=== PATIENT | male | born 1970 | race Caucasian/White ===

== ENCOUNTER 2016-11-14 08:23 | Inpatient (IN) | payer OTHER ==
[2016-11-14 08:50] VITALS: BMI 41.0
--- NOTE | 2016-11-14 08:52 | HP ---
COWS - Scale Resting Pulse: 0= [place] 80 or Below Sweatin=Flushed/Facial Moisture Restless Observation: 3= Extraneous Movement Pupil Size: 2= Moderately Dilated Bone or Joint Aches: 2= Severe Diffuse Aches Runny Nose/ Eye Tearin= Runny Nose/Eyes GI Upset > 30mins: 3= Vomiting/Diarrhea Tremor Observation: 2= Slight Tremor Visible Yawning Observation: 2= >3x During Session Anxiety or Irritability: 2=Irritable/Anxious Goose Flesh Skin: 0=Smooth Skin COWS Score: 20 Admission ROS BHS - HPI Chief Complaint: i neeed help to stop using heroin,cocaine,xanax,marijuana,street methadone Allergies/Adverse Reactions: Allergies Allergy/AdvReac Type Severity Reaction Status Date / Time No Known Allergies Allergy Verified 11/14/16 08:45 History of Present Illness: this 45 years old male with heroin,cocaine,cannabis,marijuana dependence, withdrawal symptom,never been in detox before stated need help to stop using drugs nicotine dependence plan to go to rehab after detox denied psychiatric problem also using street methadone Exam Limitations: No Limitations - Ebola screening Have you traveled outside of the country in the last 21 days: No Have you had contact with anyone from an Ebola affected area: No - Review of Systems Constitutional: Diaphoresis, Loss of Appetite, Malaise, Night Sweats, Changes in sleep, Weakness EENT: reports: Tearing, Nose Congestion Respiratory: reports: No Symptoms reported Cardiac: reports: Palpitations GI: reports: Diarrhea, Nausea, Vomiting, Abdominal cramping : reports: No Symptoms Reported Musculoskeletal: reports: Back Pain, Joint Pain, Muscle Pain, Joint Stiffness Integumentary: reports: Dryness Neuro: reports: Headache, Tremors Endocrine: reports: No Symptoms Reported Hematology: reports: No Symptoms Reported Psychiatric: reports: No Sypmtoms Reported Other Systems: Reviewed and Negative Patient History - Patient Medical History Hx Anemia: No Hx Asthma: No Hx Chronic Obstructive Pulmonary Disease (COPD): No Hx Cancer: No Hx Cardiac Disorders: No Hx Congestive Heart Failure: No Hx Hypertension: No Hx Hypercholesterolemia: No Hx Pacemaker: No HX Cerebrovascular Accident: No Hx Seizures: No Hx Dementia: No Hx Diabetes: No Hx Gastrointestinal Disorders: No Hx Liver Disease: No Hx Genitourinary Disorders: No Hx Sexually Transmitted Disorders: No Hx Renal Disease (ESRD): No Hx Thyroid Disease: No Hx Human Immunodeficiency Virus (HIV): No (2016 negative) Hx Hepatitis C: No Hx Depression: No Hx Suicide Attempt: No Hx Bipolar Disorder: No Hx Schizophrenia: No Other Medical History: no suicidal,no homicidal - Patient Surgical History Past Surgical History: No - PPD History Previous Implant?: Yes Documented Results: Negative w/o proof Implanted On Prior [facility] Admission?: No PPD to be Administered?: Yes - Smoking Cessation Smoking history: Current every day smoker Have you smoked in the past 12 months: Yes Aproximately how many cigarettes per day: 20 Cigars Per Day: 0 Hx Chewing Tobacco Use: No Initiated information on smoking cessation: Yes 'Breaking Loose' booklet given: 11/14/16 - Substance & Tx. History Hx Alcohol Use: No Hx Substance Use: Yes Substance Use Type: Cocaine, Heroin, Marijuana, Tranquilizers Hx Substance Use Treatment: No - Substances Abused Heroin Route: Inhalation Frequency: Daily Amount used: 20-25 bags Age of first use: 23 Date of Last Use: 11/14/16 Cocaine Route: Inhalation Frequency: 1-3 times last 30 days Amount used: 1/2 gram Age of first use: 23 Date of Last Use: 11/10/16 Alprazolam (Xanax) Route: Oral Frequency: 1-2 times per week Amount used: 4mg Age of first use: 23 Date of Last Use: 11/10/16 Marijuana/Hashish Route: Smoking Frequency: Daily Amount used: $20 Age of first use: 17 Date of Last Use: 11/13/16 Non-Rx Methadone Route: Oral Frequency: 1-3 times last 30 days Amount used: 30mg Age of first use: 23 Date of Last Use: 11/10/16 Family Disease History - Family Disease History Family History: Denies Admission Physical Exam BHS - Vital Signs Vital Signs: Vital Signs Temperature 97.9 F 11/14/16 08:46 Pulse Rate 77 11/14/16 08:46 Respiratory Rate 16 11/14/16 08:46 Blood Pressure 140/94 11/14/16 08:46 O2 Sat by Pulse Oximetry (%) - Physical General Appearance: Yes: Moderate Distress, Tremorous, Irritable, Sweating, Anxious HEENTM: Yes: Hearing grossly Normal, AZRA, Nasal Congestion Respiratory: Yes: Lungs Clear, Normal Breath Sounds, No Respiratory Distress Neck: Yes: Within Normal Limits, Supple, Trachea in good position Breast: Yes: Within Normal Limits Cardiology: Yes: Regular Rhythm, Regular Rate, S1, S2 Abdominal: Yes: Within Normal Limits, Normal Bowel Sounds, Non Tender, Flat, Soft Genitourinary: Yes: Within Normal Limits Back: Yes: Within Normal Limits, Muscle Spasm Musculoskeletal: Yes: full range of Motion, Back pain, Joint Stiffness, Muscle Pain Neurological: Yes: publications sales representative II-XII NML intact, Fully Oriented, Alert, Motor Strength 5/5 Integumentary: Yes: Dry Lymphatic: Yes: Within Normal Limits - Diagnostic (1) Opioid dependence with withdrawal Current Visit: Yes Status: Acute (2) Cocaine dependence Current Visit: Yes Status: Acute (3) Cannabis dependence Current Visit: Yes Status: Acute (4) Insomnia Current Visit: Yes Status: Acute (5) Nicotine dependence Current Visit: Yes Status: Acute Cleared for Admission S - Detox or Rehab [facility] Level of Care: Medically Managed Detox Regimen/Protocol: Methadone
[2016-11-14] MEDS ORDERED: NICOTINE POLACRILEX 2 MG GUM BUC PRN (09:15)
[2016-11-14] MEDS ORDERED: MENTHOL/PHENOL 1 EACH UD MM PRN (09:15)
[2016-11-14] MEDS ORDERED: ACETAMINOPHEN 325 MG TABLET (FP) PO PRN (09:15)
[2016-11-14] MEDS ORDERED: guaiFENesin/D-METHORPHAN HB 10 ML UNIT-DOSE CUPS PO PRN (09:15)
[2016-11-14] MEDS ORDERED: MAG HYDROX/AL HYDROX/SIMETH 30 ML UNIT-DOSE CUP PO PRN (09:15)
[2016-11-14] MEDS ORDERED: MAGNESIUM CITRATE 300 ML BOTTLE PO PRN (09:15)
[2016-11-14] MEDS ORDERED: hydrOXYzine PAMOATE 50 MG CAPSULE (FP) PO PRN (09:15)
[2016-11-14] MEDS ORDERED: IBUPROFEN 400 MG TABLET (FP) PO PRN (09:15)
[2016-11-14] MEDS ORDERED: diphenhydrAMINE HCL 50 MG CAPSULE PO PRN (09:15)
[2016-11-14] MEDS ORDERED: MAGNESIUM HYDROX 2400MG/30ML ORAL SUSPENSION 30 ML CUP PO PRN (09:15)
[2016-11-14] MEDS ORDERED: LOPERAMIDE HCL 2 MG CAPSULE PO PRN (09:15)
[2016-11-14] MEDS ORDERED: P-EPHED 60MG/TRIPROLIDI 2.5MG TABLET PO PRN (09:15)
[2016-11-14] MEDS ORDERED: CYCLOBENZAPRINE HCL 10 MG TABLET (FP) PO PRN (09:19)
[2016-11-14] MEDS ORDERED: METHADONE HCL 10 MG TABLET (FOR DETOX USE ONLY) PO ONE ×2 (10:14→23:00)
[2016-11-14] MEDS: diazePAM 5 MG TABLET PO PRN ×2 (11:41→22:17)
[2016-11-14] MEDS: cloNIDine HCL 0.1 MG TABLET PO SCH ×2 (11:41→22:17)
[2016-11-14] MEDS: PRENATAL VITAMINS W/ FOLIC ACID TABLET (FP) PO SCH (11:42)
[2016-11-14] MEDS: NICOTINE 21 MG/24 HOURS TOPICAL PATCH TD SCH (11:43)
--- NOTE | 2016-11-14 17:16 | EKG ---
Test Reason : Blood Pressure : / mmHG Vent. Rate : 065 BPM Atrial Rate : 065 BPM P-R Int : 140 ms QRS Dur : 088 ms QT Int : 404 ms P-R-T Axes : 015 068 033 degrees QTc Int : 420 ms NORMAL SINUS RHYTHM EARLY REPOLARIZATION NORMAL ECG NO PREVIOUS ECGS AVAILABLE Confirmed by MILDRED WALKER MD ([id number]) on 11/14/2016 5:16:16 PM Referred By: Confirmed By:MILDRED WALKER MD
[2016-11-14] MEDS ORDERED: THIAMINE HCL 100 MG TABLET (FP) PO SCH (22:00)
[2016-11-14 23:17] LABS: HIV 1 & 2 AB NEGATIVE; HIV 1 AGp24 NEGATIVE
[2016-11-15 05:43] LABS: URINE APPEARANCE CLEAR; URINE BILIRUBIN NEGATIVE (NEGATIVE); URINE BLOOD NEGATIVE (NEGATIVE); URINE COLOR YELLOW; URINE GLUCOSE (UA) NEGATIVE (NEGATIVE); URINE KETONE TRACE (NEGATIVE); URINE LEUK ESTERASE NEGATIVE (NEGATIVE); URINE NITRITE NEGATIVE (NEGATIVE); URINE PROTEIN NEGATIVE (NEGATIVE); URINE UROBILINOGEN NEGATIVE E.U./dl (0.2-1.0)
[2016-11-15] MEDS ORDERED: METHADONE HCL 10 MG TABLET (FOR DETOX USE ONLY) PO ONE (10:00)
[2016-11-15] MEDS ORDERED: DOCUSATE SODIUM 100 MG CAPSULE (FP) PO SCH (10:00)
[2016-11-15] MEDS: PRENATAL VITAMINS W/ FOLIC ACID TABLET (FP) PO SCH (10:04)
[2016-11-15] MEDS: diazePAM 5 MG TABLET PO PRN (10:04)
[2016-11-15] MEDS: NICOTINE 21 MG/24 HOURS TOPICAL PATCH TD SCH (10:05)
[2016-11-15] MEDS: cloNIDine HCL 0.1 MG TABLET PO SCH (10:05)
--- NOTE | 2016-11-15 11:23 | PN ---
BHS COWS - Scale Resting Pulse: 0= [place] 80 or Below Sweatin=Flushed/Facial Moisture Restless Observation: 0= Sits Still Pupil Size: 0= Normal to Room Light Bone or Joint Aches: 1= Mild Discomfort Runny Nose/ Eye Tearin= Runny Nose/Eyes GI Upset > 30mins: 1= Stomach Cramp Tremor Observation of Outstretched Hands: 2= Slight Tremor Visible Yawning Observation: 1= 1-2x During Session Anxiety or Irritability: 2=Irritable/Anxious Goose Flesh Skin: 3=Piloerection COWS Score: 14 BHS Progress Note (SOAP) Subjective: Stomach Cramping, Constipation, Sweating, Tremors, Interrupted sleep. Objective: PT. SA & O X 3, OBSERVED AMBULATING ON UNIT. NO ACUTE DISTRESS. PT. DENIES CHEST PAIN. 11/15/16 11:20 Vital Signs Temperature 97.8 F 11/15/16 09:09 Pulse Rate 68 11/15/16 09:09 Respiratory Rate 18 11/15/16 09:09 Blood Pressure 122/72 11/15/16 09:09 O2 Sat by Pulse Oximetry (%) Laboratory Tests 11/14/16 11/14/16 10:00 16:53 Urine Color Yellow Urine Appearance Clear Urine pH 5.0 Urine Protein Negative Urine Glucose (UA) Negative Urine Ketones Trace H Urine Blood Negative Urine Nitrite Negative Urine Bilirubin Negative Urine Urobilinogen Negative Ur Leukocyte Esterase Negative HIV 1&2 Antibody Screen Negative HIV P24 Antigen Negative UA RESULTS NOTED. OTHER ADMISSION LAB VALUES PENDING. Assessment: 11/15/16 11:21 WITHDRAWAL SYMPTOMS. Plan: CONTINUE DETOX. COLACE, 100 MG BID FOR CONSTIPATION.
[2016-11-15 13:30] VITALS: BP 122/82; PULSE 65; TEMP 97.5
[2016-11-15 14:43] LABS: MCH 30.8 pg (25.7-33.7); MCHC 33.9 g/dl (32.0-35.9); MEAN CELL VOLUME 90.9 fl (80-96); MEAN PLT VOLUME 9.4 fl (7.5-11.1); PLATELET COUNT 174 K/MM3 (134-434); RDW 13.4 % (11.9-15.9); WHITE BLOOD COUNT 7.5 K/mm3 (4.0-10.0)
[2016-11-15 14:58] LABS: ANION GAP 7 (8-16); BILIRUBIN,TOTAL 0.4 mg/dL (0.2-1.0); CALCIUM 8.3 mg/dL (8.5-10.1); CO2 29 mmol/L (21-32); CREATININE 0.9 mg/dL (0.7-1.3); GLUCOSE,RANDOM 113 mg/dL (74-106); SGOT/AST 15 U/L (15-37); SGPT/ALT 28 U/L (12-78); TOT PROT 5.7 g/dl (6.4-8.2)
[2016-11-15 14:59] LABS: ALK PHOS 63 U/L (45-117)
--- NOTE | 2016-11-15 16:06 | PN ---
[facility] Progress Note Note: Earlier in afternoon at approx. 2 PM, received report from Karen Granados RN that patient is contemplating leaving AMA because he does not like having to attend daily Unit Group meetings and daily meetings with his Coal Washer Tender on Unit. Along with Coal Washer Tender Hans Escudero and Ms. Karen Granados RN, met with patient to discuss his concerns about completing Detox and encouraged him to try to remain on unit to complete Detox regimen. Patient receptive to discussion and responded that he will agree to try to stay to complete Detox. Marija Goins NP
--- NOTE | 2016-11-15 16:09 | DS ---
[facility] Detox Discharge Summary Admission Date: 11/14/16 Discharge Date: 11/15/16 - History Present History: Cannabis Dependence, Cocaine Dependence, Opioid Dependence Pertinent Past History: Insomnia. - Physical Exam Results Vital Signs: Vital Signs Temperature 97.5 F L 11/15/16 13:30 Pulse Rate 65 11/15/16 13:30 Respiratory Rate 18 11/15/16 13:30 Blood Pressure 122/82 11/15/16 13:30 O2 Sat by Pulse Oximetry (%) Pertinent Admission Physical Exam Findings: WITHDRAWAL SYMPTOMS. Laboratory Tests 11/14/16 11/14/16 11/15/16 10:00 16:53 10:45 WBC 7.5 RBC 4.69 Hgb 14.5 Hct 42.6 MCV 90.9 MCH 30.8 MCHC 33.9 RDW 13.4 Plt Count 174 MPV 9.4 Sodium Potassium Chloride Carbon Dioxide Anion Gap BUN Creatinine Creat Clearance w eGFR Random Glucose Calcium Total Bilirubin AST ALT Alkaline Phosphatase Total Protein Albumin Urine Color Yellow Urine Appearance Clear Urine pH 5.0 Ur Specific [place] 1.025 Urine Protein Negative Urine Glucose (UA) Negative Urine Ketones Trace H Urine Blood Negative Urine Nitrite Negative Urine Bilirubin Negative Urine Urobilinogen Negative Ur Leukocyte Esterase Negative RPR Titer HIV 1&2 Antibody Screen Negative HIV P24 Antigen Negative 11/15/16 11/15/16 10:45 10:45 WBC RBC Hgb Hct MCV MCH MCHC RDW Plt Count MPV Sodium 139 Potassium 4.0 Chloride 103 Carbon Dioxide 29 Anion Gap 7 L BUN 13 Creatinine 0.9 Creat Clearance w eGFR > 60 Random Glucose 113 H Calcium 8.3 L Total Bilirubin 0.4 AST 15 ALT 28 Alkaline Phosphatase 63 Total Protein 5.7 L Albumin 3.0 L Urine Color Urine Appearance Urine pH Ur Specific [place] Urine Protein Urine Glucose (UA) Urine Ketones Urine Blood Urine Nitrite Urine Bilirubin Urine Urobilinogen Ur Leukocyte Esterase RPR Titer Nonreactive HIV 1&2 Antibody Screen HIV P24 Antigen LABS NOTED. - Treatment Hospital Course: Detoxed Safely - Medication Discharge Medications: Ambulatory Orders NK [No Known Home Medication] 11/14/16 - Diagnosis (1) Cannabis dependence Current Visit: Yes Status: Acute (2) Cocaine dependence Current Visit: Yes Status: Acute Qualifiers: Substance use status: uncomplicated Qualified Code(s): F14.20 - Cocaine dependence, uncomplicated (3) Insomnia Current Visit: Yes Status: Acute Qualifiers: Insomnia type: unspecified Qualified Code(s): G47.00 - Insomnia, unspecified (4) Nicotine dependence Current Visit: Yes Status: Chronic Qualifiers: Nicotine product type: cigarettes Substance use status: uncomplicated Qualified Code(s): F17.210 - Nicotine dependence, cigarettes, uncomplicated (5) Opioid dependence with withdrawal Current Visit: Yes Status: Acute - AMA Did Patient Leave Against Medical Advice: Yes (PATIENT DID NOT WISH TO STAY TO COMPLETE DETOX REGIMEN.)
[2016-11-16] MEDS ORDERED: METHADONE HCL 5 MG TABLET (FOR DETOX USE ONLY) PO ONE (10:00)
[2016-11-17] MEDS ORDERED: METHADONE HCL 5 MG TABLET (FOR DETOX USE ONLY) PO ONE (10:00)
[2016-11-18] MEDS ORDERED: METHADONE HCL 10 MG TABLET (FOR DETOX USE ONLY) PO ONE (10:00)
[2016-11-19] MEDS ORDERED: METHADONE HCL 5 MG TABLET (FOR DETOX USE ONLY) PO ONE (06:00)
== END 2016-11-15 15:05 | disposition left against medical advice (07) | DRG 770 ==
LOC: YASAS 08:23 → Y3N 10:11
PROVIDERS: ADMIT Internal Medicine; ATTEND Internal Medicine
PROC: HZ2ZZZZ Detoxification Services for Substance Abuse Treatment (ICD-10-PCS; principal; 2016-11-14)
DX: F11.23 Opioid dependence with withdrawal (principal); F14.20 Cocaine dependence, uncomplicated; F12.20 Cannabis dependence, uncomplicated; F17.210 Nicotine dependence, cigarettes, uncomplicated; G47.00 Insomnia, unspecified
CPT/HCPCS: 36415; 80053; 81003; 85027; 86593; 87389; 93005; 93010

== ENCOUNTER 2018-03-03 12:58 | Inpatient (IN) | payer OTHER ==
[2018-03-03 13:41] VITALS: BMI 39.4
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
[2018-03-03] MEDS ORDERED: guaiFENesin/D-METHORPHAN HB 10 ML UNIT-DOSE CUPS PO PRN (14:42)
[2018-03-03] MEDS ORDERED: LOPERAMIDE HCL 2 MG CAPSULE PO PRN (14:42)
[2018-03-03] MEDS ORDERED: MAG HYDROX/AL HYDROX/SIMETH 30 ML UNIT-DOSE CUP PO PRN (14:42)
[2018-03-03] MEDS ORDERED: METHADONE HCL 10 MG TABLET (FOR DETOX USE ONLY) PO ONE ×2 (14:42→23:00)
[2018-03-03] MEDS ORDERED: P-EPHED 60MG/TRIPROLIDI 2.5MG TABLET PO PRN (14:42)
[2018-03-03] MEDS ORDERED: ACETAMINOPHEN 325 MG TABLET (FP) PO PRN (14:42)
[2018-03-03] MEDS ORDERED: MAGNESIUM CITRATE 300 ML BOTTLE PO PRN (14:42)
[2018-03-03] MEDS ORDERED: MENTHOL/PHENOL 1 EACH UD MM PRN (14:42)
[2018-03-03] MEDS ORDERED: MAGNESIUM HYDROX 2400MG/30ML ORAL SUSPENSION 30 ML CUP PO PRN (14:42)
[2018-03-03] MEDS ORDERED: IBUPROFEN 400 MG TABLET (FP) PO PRN (14:42)
[2018-03-03] MEDS ORDERED: NICOTINE POLACRILEX 2 MG GUM BC PRN (14:42)
[2018-03-03] MEDS ORDERED: CYCLOBENZAPRINE HCL 10 MG TABLET (FP) PO PRN (14:45)
[2018-03-03] MEDS: NICOTINE 21 MG/24 HOURS TOPICAL PATCH TD SCH (15:36)
[2018-03-03 17:05] LABS: URINE APPEARANCE CLEAR; URINE BILIRUBIN NEGATIVE (<2.0 mg/dL); URINE COLOR YELLOW; URINE GLUCOSE (UA) NEGATIVE (NEGATIVE); URINE KETONE NEGATIVE (NEGATIVE); URINE LEUK ESTERASE NEGATIVE (NEGATIVE); URINE NITRITE NEGATIVE (NEGATIVE); URINE PROTEIN NEGATIVE (NEGATIVE); URINE UROBILINOGEN NEGATIVE mg/dL (0.2-1.0)
[2018-03-03] MEDS ORDERED: MELATONIN 5 MG TABLETS PO PRN (22:00)
[2018-03-03] MEDS: THIAMINE HCL 100 MG TABLET (FP) PO SCH (22:30)
[2018-03-03] MEDS: cloNIDine HCL 0.1 MG TABLET PO SCH (22:30)
[2018-03-04] MEDS: diazePAM 5 MG TABLET PO PRN ×2 (02:55→10:15)
--- NOTE | 2018-03-04 09:49 | EKG ---
Test Reason : Blood Pressure : / mmHG Vent. Rate : 062 BPM Atrial Rate : 062 BPM P-R Int : 134 ms QRS Dur : 088 ms QT Int : 390 ms P-R-T Axes : 021 076 062 degrees QTc Int : 395 ms NORMAL SINUS RHYTHM EARLY REPOLARIZATION NORMAL ECG WHEN COMPARED WITH ECG OF 14-NOV-2016 10:58, NO SIGNIFICANT CHANGE WAS FOUND Confirmed by OSORIO OSMAN MD ([id number]) on 03/04/2018 9:49:46 AM Referred By: ARIANNA THOMAS Confirmed By:SOORIO OSMAN MD
[2018-03-04] MEDS ORDERED: METHADONE HCL 10 MG TABLET (FOR DETOX USE ONLY) PO ONE (10:00)
[2018-03-04] MEDS: PRENATAL VITAMINS W/ FOLIC ACID TABLET (FP) PO SCH (10:15)
[2018-03-04] MEDS: cloNIDine HCL 0.1 MG TABLET PO SCH ×2 (10:15→22:20)
[2018-03-04] MEDS: NICOTINE 21 MG/24 HOURS TOPICAL PATCH TD SCH (10:16)
[2018-03-04 10:25] LABS: HEMATOCRIT 45.5 % (35.4-49); HEMOGLOBIN 14.6 GM/dL (11.7-16.9); MCH 29.1 pg (25.7-33.7); MEAN CELL VOLUME 90.8 fl (80-96); MEAN PLT VOLUME 9.6 fl (7.5-11.1); PLATELET COUNT 189 K/MM3 (134-434); RBC 5.01 M/mm3 (4.00-5.60); RDW 13.8 % (11.9-15.9)
[2018-03-04 10:46] LABS: ALBUMIN 3.3 g/dl (3.4-5.0); ALK PHOS 61 U/L (45-117); ANION GAP 9 MMOL/L (8-16); BILIRUBIN,TOTAL 0.3 mg/dL (0.2-1); BLOOD UREA NITROGEN 20 mg/dL (7-18); CALCIUM 8.4 mg/dL (8.5-10.1); CHLORIDE 105 mmol/L (98-107); CO2 26 mmol/L (21-32); CREATININE 0.8 mg/dL (0.55-1.3); GLUCOSE,RANDOM 94 mg/dL (74-106); POTASSIUM 4.5 mmol/L (3.5-5.1); SGOT/AST 11 U/L (15-37); SGPT/ALT 20 U/L (13-61); SODIUM 141 mmol/L (136-145); TOT PROT 6.1 g/dl (6.4-8.2)
--- NOTE | 2018-03-04 14:00 | PN ---
BHS COWS - Scale Resting Pulse: 0= [place] 80 or Below Sweatin= Chills/Flushing Restless Observation: 3= Extraneous Movement Pupil Size: 0= Normal to Room Light Bone or Joint Aches: 2= Severe Diffuse Aches Runny Nose/ Eye Tearin= Runny Nose/Eyes GI Upset > 30mins: 2= Nausea/Diarrhea Tremor Observation of Outstretched Hands: 2= Slight Tremor Visible Yawning Observation: 1= 1-2x During Session Anxiety or Irritability: 2=Irritable/Anxious Goose Flesh Skin: 0=Smooth Skin COWS Score: 15 BHS Progress Note (SOAP) Subjective: Sweating, interrupted sleep Objective: 03/04/18 13:58 Last Vital Signs Temp Pulse Resp BP Pulse Ox 96 F L 70 20 120/73 03/04/18 13:33 03/04/18 13:33 03/04/18 13:33 03/04/18 13:33 Laboratory Tests 03/03/18 03/04/18 03/04/18 16:33 07:00 07:00 WBC 8.0 RBC 5.01 Hgb 14.6 Hct 45.5 MCV 90.8 MCH 29.1 MCHC 32.0 RDW 13.8 Plt Count 189 MPV 9.6 Sodium Potassium Chloride Carbon Dioxide Anion Gap BUN Creatinine Creat Clearance w eGFR Random Glucose Calcium Total Bilirubin AST ALT Alkaline Phosphatase Total Protein Albumin Urine Color Yellow Urine Appearance Clear Urine pH 5.0 Ur Specific [place] 1.023 Urine Protein Negative Urine Glucose (UA) Negative Urine Ketones Negative Urine Blood Negative Urine Nitrite Negative Urine Bilirubin Negative Urine Urobilinogen Negative Ur Leukocyte Esterase Negative RPR Titer HIV 1&2 Antibody Screen Negative HIV P24 Antigen Negative 03/04/18 03/04/18 07:00 07:00 WBC RBC Hgb Hct MCV MCH MCHC RDW Plt Count MPV Sodium 141 Potassium 4.5 Chloride 105 Carbon Dioxide 26 Anion Gap 9 BUN 20 H Creatinine 0.8 Creat Clearance w eGFR > 60 Random Glucose 94 Calcium 8.4 L Total Bilirubin 0.3 AST 11 L ALT 20 Alkaline Phosphatase 61 Total Protein 6.1 L Albumin 3.3 L Urine Color Urine Appearance Urine pH Ur Specific [place] Urine Protein Urine Glucose (UA) Urine Ketones Urine Blood Urine Nitrite Urine Bilirubin Urine Urobilinogen Ur Leukocyte Esterase RPR Titer Nonreactive HIV 1&2 Antibody Screen HIV P24 Antigen Labs reviewed: bun 20 Assessment: 03/04/18 14:00 Withdrawal symptoms Noted with azotemia Plan: Continue detox Azotemia: encouraged PO water intake
[2018-03-04] MEDS: THIAMINE HCL 100 MG TABLET (FP) PO SCH (22:21)
[2018-03-05] MEDS ORDERED: METHADONE HCL 5 MG TABLET (FOR DETOX USE ONLY) PO ONE (10:00)
[2018-03-05] MEDS: PRENATAL VITAMINS W/ FOLIC ACID TABLET (FP) PO SCH (10:13)
[2018-03-05] MEDS: cloNIDine HCL 0.1 MG TABLET PO SCH ×2 (10:13→22:17)
[2018-03-05] MEDS: NICOTINE 21 MG/24 HOURS TOPICAL PATCH TD SCH (10:14)
--- NOTE | 2018-03-05 10:57 | PN ---
BHS COWS - Scale Resting Pulse: 0= [place] 80 or Below Sweatin= Chills/Flushing Restless Observation: 1= Difficult to Sit Still Pupil Size: 0= Normal to Room Light Bone or Joint Aches: 2= Severe Diffuse Aches Runny Nose/ Eye Tearin= Runny Nose/Eyes GI Upset > 30mins: 2= Nausea/Diarrhea Tremor Observation of Outstretched Hands: 2= Slight Tremor Visible Yawning Observation: 0= None Anxiety or Irritability: 2=Irritable/Anxious Goose Flesh Skin: 0=Smooth Skin COWS Score: 12 BHS Progress Note (SOAP) Subjective: Sweating, interrupted sleep, nausea Objective: 03/05/18 10:56 Last Vital Signs Temp Pulse Resp BP Pulse Ox 96.4 F L 66 18 117/80 03/05/18 09:05 03/05/18 09:05 03/05/18 09:05 03/05/18 09:05 Laboratory Tests 03/03/18 03/04/18 03/04/18 16:33 07:00 07:00 WBC 8.0 RBC 5.01 Hgb 14.6 Hct 45.5 MCV 90.8 MCH 29.1 MCHC 32.0 RDW 13.8 Plt Count 189 MPV 9.6 Sodium Potassium Chloride Carbon Dioxide Anion Gap BUN Creatinine Creat Clearance w eGFR Random Glucose Calcium Total Bilirubin AST ALT Alkaline Phosphatase Total Protein Albumin Urine Color Yellow Urine Appearance Clear Urine pH 5.0 Ur Specific [place] 1.023 Urine Protein Negative Urine Glucose (UA) Negative Urine Ketones Negative Urine Blood Negative Urine Nitrite Negative Urine Bilirubin Negative Urine Urobilinogen Negative Ur Leukocyte Esterase Negative RPR Titer HIV 1&2 Antibody Screen Negative HIV P24 Antigen Negative 03/04/18 03/04/18 07:00 07:00 WBC RBC Hgb Hct MCV MCH MCHC RDW Plt Count MPV Sodium 141 Potassium 4.5 Chloride 105 Carbon Dioxide 26 Anion Gap 9 BUN 20 H Creatinine 0.8 Creat Clearance w eGFR > 60 Random Glucose 94 Calcium 8.4 L Total Bilirubin 0.3 AST 11 L ALT 20 Alkaline Phosphatase 61 Total Protein 6.1 L Albumin 3.3 L Urine Color Urine Appearance Urine pH Ur Specific [place] Urine Protein Urine Glucose (UA) Urine Ketones Urine Blood Urine Nitrite Urine Bilirubin Urine Urobilinogen Ur Leukocyte Esterase RPR Titer Nonreactive HIV 1&2 Antibody Screen HIV P24 Antigen Labs reviewed Assessment: 03/05/18 10:57 Withdrawal symptoms Plan: Continue detox Encouraged PO water intake
[2018-03-05] MEDS: diazePAM 5 MG TABLET PO PRN (20:09)
[2018-03-05] MEDS: THIAMINE HCL 100 MG TABLET (FP) PO SCH (22:17)
[2018-03-06] MEDS ORDERED: METHADONE HCL 5 MG TABLET (FOR DETOX USE ONLY) PO ONE (10:00)
[2018-03-06] MEDS: NICOTINE 21 MG/24 HOURS TOPICAL PATCH TD SCH (11:29)
[2018-03-06] MEDS: PRENATAL VITAMINS W/ FOLIC ACID TABLET (FP) PO SCH (11:29)
[2018-03-06] MEDS: cloNIDine HCL 0.1 MG TABLET PO SCH (11:29)
[2018-03-06 13:38] VITALS: BP 132/85; PULSE 68; TEMP 98.9
--- NOTE | 2018-03-06 13:58 | PN ---
BHS Progress Note (SOAP) Subjective: Sweating, anxious Objective: 03/06/18 13:57 Last Vital Signs Temp Pulse Resp BP Pulse Ox 98.9 F 68 18 132/85 03/06/18 13:37 03/06/18 13:37 03/06/18 13:37 03/06/18 13:37 Laboratory Tests 03/03/18 03/04/18 03/04/18 16:33 07:00 07:00 WBC 8.0 RBC 5.01 Hgb 14.6 Hct 45.5 MCV 90.8 MCH 29.1 MCHC 32.0 RDW 13.8 Plt Count 189 MPV 9.6 Sodium Potassium Chloride Carbon Dioxide Anion Gap BUN Creatinine Creat Clearance w eGFR Random Glucose Calcium Total Bilirubin AST ALT Alkaline Phosphatase Total Protein Albumin Urine Color Yellow Urine Appearance Clear Urine pH 5.0 Ur Specific [place] 1.023 Urine Protein Negative Urine Glucose (UA) Negative Urine Ketones Negative Urine Blood Negative Urine Nitrite Negative Urine Bilirubin Negative Urine Urobilinogen Negative Ur Leukocyte Esterase Negative RPR Titer HIV 1&2 Antibody Screen Negative HIV P24 Antigen Negative 03/04/18 03/04/18 07:00 07:00 WBC RBC Hgb Hct MCV MCH MCHC RDW Plt Count MPV Sodium 141 Potassium 4.5 Chloride 105 Carbon Dioxide 26 Anion Gap 9 BUN 20 H Creatinine 0.8 Creat Clearance w eGFR > 60 Random Glucose 94 Calcium 8.4 L Total Bilirubin 0.3 AST 11 L ALT 20 Alkaline Phosphatase 61 Total Protein 6.1 L Albumin 3.3 L Urine Color Urine Appearance Urine pH Ur Specific [place] Urine Protein Urine Glucose (UA) Urine Ketones Urine Blood Urine Nitrite Urine Bilirubin Urine Urobilinogen Ur Leukocyte Esterase RPR Titer Nonreactive HIV 1&2 Antibody Screen HIV P24 Antigen Labs reviewed Assessment: 03/06/18 13:57 Withdrawal symptoms Plan: Continue detox Encouraged PO water intake
--- NOTE | 2018-03-06 14:10 | DS ---
[facility] Detox Discharge Summary Admission Date: 03/03/18 Discharge Date: 03/06/18 - History Present History: Cannabis Dependence, Opioid Dependence Additional Comments: Patient is A/A/Ox3, in nad, ambulatory. Patient stated he wants to leave because he wants to smoke cigarettes. [employer] notified patient that his discharge can be adjusted for him to leave tomorrow instead of leaving AMA today and encouraged NRT but patient refused. Patient instructed to call 911 if feeling sick or any withdrawal symptoms and to see his PCP within 3 days. Pertinent Past History: Nicotine dependence Opioid dependence Cannabis dependence - Physical Exam Results Vital Signs: Vital Signs Temperature 98.9 F 03/06/18 13:37 Pulse Rate 68 03/06/18 13:37 Respiratory Rate 18 03/06/18 13:37 Blood Pressure 132/85 03/06/18 13:37 O2 Sat by Pulse Oximetry (%) Pertinent Admission Physical Exam Findings: Withdrawal symptoms Laboratory Tests 03/03/18 03/04/18 03/04/18 16:33 07:00 07:00 WBC 8.0 RBC 5.01 Hgb 14.6 Hct 45.5 MCV 90.8 MCH 29.1 MCHC 32.0 RDW 13.8 Plt Count 189 MPV 9.6 Sodium Potassium Chloride Carbon Dioxide Anion Gap BUN Creatinine Creat Clearance w eGFR Random Glucose Calcium Total Bilirubin AST ALT Alkaline Phosphatase Total Protein Albumin Urine Color Yellow Urine Appearance Clear Urine pH 5.0 Ur Specific Rufe 1.023 Urine Protein Negative Urine Glucose (UA) Negative Urine Ketones Negative Urine Blood Negative Urine Nitrite Negative Urine Bilirubin Negative Urine Urobilinogen Negative Ur Leukocyte Esterase Negative RPR Titer HIV 1&2 Antibody Screen Negative HIV P24 Antigen Negative 03/04/18 03/04/18 07:00 07:00 WBC RBC Hgb Hct MCV MCH MCHC RDW Plt Count MPV Sodium 141 Potassium 4.5 Chloride 105 Carbon Dioxide 26 Anion Gap 9 BUN 20 H Creatinine 0.8 Creat Clearance w eGFR > 60 Random Glucose 94 Calcium 8.4 L Total Bilirubin 0.3 AST 11 L ALT 20 Alkaline Phosphatase 61 Total Protein 6.1 L Albumin 3.3 L Urine Color Urine Appearance Urine pH Ur Specific Rufe Urine Protein Urine Glucose (UA) Urine Ketones Urine Blood Urine Nitrite Urine Bilirubin Urine Urobilinogen Ur Leukocyte Esterase RPR Titer Nonreactive HIV 1&2 Antibody Screen HIV P24 Antigen Labs reviewed - Medication Discharge Medications: Ambulatory Orders NK [No Known Home Medication] 11/14/16 - Diagnosis (1) Azotemia Current Visit: Yes Status: Acute (2) Cannabis dependence Current Visit: Yes Status: Chronic (3) Insomnia Current Visit: Yes Status: Acute Qualifiers: Insomnia type: unspecified Qualified Code(s): G47.00 - Insomnia, unspecified (4) Opioid dependence with withdrawal Current Visit: Yes Status: Acute (5) Nicotine dependence Current Visit: Yes Status: Chronic Qualifiers: Nicotine product type: cigarettes Substance use status: uncomplicated Qualified Code(s): F17.210 - Nicotine dependence, cigarettes, uncomplicated - AMA Did Patient Leave Against Medical Advice: Yes (Instructed to call 911 if withdrawal symptoms or feeling sick)
[2018-03-07] MEDS ORDERED: METHADONE HCL 10 MG TABLET (FOR DETOX USE ONLY) PO ONE (10:00)
[2018-03-08] MEDS ORDERED: METHADONE HCL 5 MG TABLET (FOR DETOX USE ONLY) PO ONE (06:00)
== END 2018-03-06 14:19 | disposition left against medical advice (07) | DRG 770 ==
LOC: YASAS 12:58 → Y3N 14:47
PROC: HZ2ZZZZ Detoxification Services for Substance Abuse Treatment (ICD-10-PCS; principal; 2018-03-03)
DX: F11.23 Opioid dependence with withdrawal (principal); F12.20 Cannabis dependence, uncomplicated; F17.210 Nicotine dependence, cigarettes, uncomplicated; G47.00 Insomnia, unspecified; R79.89 Other specified abnormal findings of blood chemistry; R00.0 Tachycardia, unspecified
CPT/HCPCS: 36415; 80053; 81003; 85027; 86593; 87389; 93005; 93010; J0735

== ENCOUNTER 2018-04-17 08:58 | Inpatient (IN) | payer OTHER ==
[2018-04-17 12:28] VITALS: BMI 41.0
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
[2018-04-17] MEDS ORDERED: chlordiazePOXIDE HCL 25 MG CAPSULE PO PRN (13:12)
[2018-04-17] MEDS ORDERED: CYCLOBENZAPRINE HCL 10 MG TABLET (FP) PO PRN (13:13)
[2018-04-17] MEDS ORDERED: METHADONE HCL 10 MG TABLET (FOR DETOX USE ONLY) PO ONE ×2 (14:15→23:00)
[2018-04-17] MEDS: cloNIDine HCL 0.1 MG TABLET PO SCH ×2 (14:52→22:32)
[2018-04-17] MEDS: chlordiazePOXIDE HCL 25 MG CAPSULE PO SCH ×2 (17:16→22:32)
[2018-04-18] MEDS: chlordiazePOXIDE HCL 25 MG CAPSULE PO SCH ×4 (06:00→22:27)
--- NOTE | 2018-04-18 09:49 | PN ---
[facility] CIWA - CIWA Score Nausea/Vomitin-Mild Nausea/No Vomiting Muscle Tremors: 3 Anxiety: 3 Agitation: 2 Paroxysmal Sweats: 1-Minimal Palms Moist Orientation: 1-Uncertain about Date Tacttile Disturbances: 0-None Auditory Disturbances: 0-None Visual Disturbances: 0-None Headache: 1-Very Mild CIWA-Ar Total Score: 12 S COWS - Scale Resting Pulse: 0= ME 80 or Below Sweatin= Chills/Flushing Restless Observation: 0= Sits Still Pupil Size: 0= Normal to Room Light Bone or Joint Aches: 2= Severe Diffuse Aches Runny Nose/ Eye Tearin= Nasal Congestion GI Upset > 30mins: 2= Nausea/Diarrhea Tremor Observation of Outstretched Hands: 1= Tremor [place], Not Seen Yawning Observation: 2= >3x During Session Anxiety or Irritability: 1=Feels Anxious/Irritable Goose Flesh Skin: 0=Smooth Skin COWS Score: 10 [facility] Progress Note (SOAP) Subjective: body aches muscle cramp tremor sweat trouble sleep at night Objective: 04/18/18 09:52 Vital Signs Temperature 97.0 F L 04/18/18 06:53 Pulse Rate 53 L 04/18/18 06:53 Respiratory Rate 18 04/18/18 06:53 Blood Pressure 110/72 04/18/18 06:53 O2 Sat by Pulse Oximetry (%) lab pending 04/18/18 09:53 Assessment: 04/18/18 09:54 withdrawal sx Plan: continue detox
[2018-04-18] MEDS ORDERED: METHADONE HCL 10 MG TABLET (FOR DETOX USE ONLY) PO SCH (10:00)
[2018-04-18 10:41] LABS: HEMATOCRIT 42.1 % (35.4-49); HEMOGLOBIN 13.9 GM/dL (11.7-16.9); MCH 29.7 pg (25.7-33.7); MCHC 33.1 g/dl (32.0-35.9); MEAN CELL VOLUME 89.7 fl (80-96); MEAN PLT VOLUME 9.9 fl (7.5-11.1); PLATELET COUNT 232 K/MM3 (134-434); RBC 4.69 M/mm3 (4.00-5.60); RDW 14.3 % (11.9-15.9); WHITE BLOOD COUNT 7.6 K/mm3 (4.0-10.0)
[2018-04-18] MEDS: cloNIDine HCL 0.1 MG TABLET PO SCH ×2 (11:02→22:27)
[2018-04-18 11:24] LABS: ALBUMIN 4.1 g/dl (3.4-5.0); ALK PHOS 63 U/L (45-117); ANION GAP 10 MMOL/L (8-16); BILIRUBIN,TOTAL 0.6 mg/dL (0.2-1); BLOOD UREA NITROGEN 17 mg/dL (7-18); CHLORIDE 102 mmol/L (98-107); CO2 25 mmol/L (21-32); GLUCOSE,RANDOM 88 mg/dL (74-106); POTASSIUM 4.1 mmol/L (3.5-5.1); SGOT/AST 21 U/L (15-37); SGPT/ALT 30 U/L (13-61); SODIUM 138 mmol/L (136-145); TOT PROT 7.2 g/dl (6.4-8.2)
[2018-04-19] MEDS: chlordiazePOXIDE HCL 25 MG CAPSULE PO SCH ×2 (06:05→10:49)
[2018-04-19] MEDS ORDERED: METHADONE HCL 5 MG TABLET (FOR DETOX USE ONLY) PO SCH (10:00)
[2018-04-19] MEDS: cloNIDine HCL 0.1 MG TABLET PO SCH (10:49)
[2018-04-19 13:19] VITALS: BP 130/84; PULSE 78; TEMP 98.8
--- NOTE | 2018-04-19 15:51 | PN ---
S CIWA - CIWA Score Nausea/Vomitin-No Nausea/No Vomiting Muscle Tremors: 2 Anxiety: 2 Agitation: 2 Paroxysmal Sweats: 2 Orientation: 0-Oriented Tacttile Disturbances: 0-None Auditory Disturbances: 0-None Visual Disturbances: 0-None Headache: 0-None Present CIWA-Ar Total Score: 8 [facility] COWS - Scale Resting Pulse: 0= [place] 80 or Below Sweatin=Flushed/Facial Moisture Restless Observation: 1= Difficult to Sit Still Pupil Size: 0= Normal to Room Light Bone or Joint Aches: 2= Severe Diffuse Aches Runny Nose/ Eye Tearin= None GI Upset > 30mins: 0= None Tremor Observation of Outstretched Hands: 2= Slight Tremor Visible Yawning Observation: 1= 1-2x During Session Anxiety or Irritability: 2=Irritable/Anxious Goose Flesh Skin: 0=Smooth Skin COWS Score: 10 [facility] Progress Note (SOAP) Subjective: PATIENT C/O INTERRUPTED SLEEP, ANXIETY/RESTLESSNESS, SWEATING AND SHAKES. Objective: 04/19/18 15:45 Vital Signs Temperature 98.8 F 04/19/18 13:18 Pulse Rate 78 04/19/18 13:18 Respiratory Rate 18 04/19/18 13:18 Blood Pressure 130/84 04/19/18 13:18 O2 Sat by Pulse Oximetry (%) Laboratory Tests 04/17/18 04/18/18 04/18/18 06:00 07:40 07:40 WBC 7.6 RBC 4.69 Hgb 13.9 Hct 42.1 MCV 89.7 MCH 29.7 MCHC 33.1 RDW 14.3 Plt Count 232 D MPV 9.9 Sodium 138 Potassium 4.1 Chloride 102 Carbon Dioxide 25 Anion Gap 10 BUN 17 Creatinine 1.0 Creat Clearance w eGFR > 60 Random Glucose 88 Calcium 9.0 Total Bilirubin 0.6 AST 21 ALT 30 Alkaline Phosphatase 63 Total Protein 7.2 Albumin 4.1 RPR Titer HIV 1&2 Antibody Screen Negative HIV P24 Antigen Negative 04/18/18 07:40 WBC RBC Hgb Hct MCV MCH MCHC RDW Plt Count MPV Sodium Potassium Chloride Carbon Dioxide Anion Gap BUN Creatinine Creat Clearance w eGFR Random Glucose Calcium Total Bilirubin AST ALT Alkaline Phosphatase Total Protein Albumin RPR Titer Nonreactive HIV 1&2 Antibody Screen HIV P24 Antigen PE: ALERT AND ORIENTED X 3 SKIN WARM AND MOIST EXT FULL ROM, +TREMORS, AMB AD JOEY ANXIOUS/RESTLESSNESS Assessment: 04/19/18 15:51 WITHDRAWAL SX Plan: CONTINUE DETOX ENCOURAGE FLUIDS CONTINUE TO MONITOR CLINICALLY
[2018-04-19] MEDS ORDERED: MAGNESIUM CITRATE 300 ML BOTTLE PO PRN (15:52)
[2018-04-19] MEDS ORDERED: P-EPHED 60MG/TRIPROLIDI 2.5MG TABLET PO PRN (15:52)
[2018-04-19] MEDS ORDERED: IBUPROFEN 400 MG TABLET (FP) PO PRN (15:52)
[2018-04-19] MEDS ORDERED: hydrOXYzine PAMOATE 50 MG CAPSULE (FP) PO PRN (15:52)
[2018-04-19] MEDS ORDERED: MENTHOL/PHENOL 1 EACH UD MM PRN (15:52)
[2018-04-19] MEDS ORDERED: MAG HYDROX/AL HYDROX/SIMETH 30 ML UNIT-DOSE CUP PO PRN (15:52)
[2018-04-19] MEDS ORDERED: MAGNESIUM HYDROX 2400MG/30ML ORAL SUSPENSION 30 ML CUP PO PRN (15:52)
[2018-04-19] MEDS ORDERED: ACETAMINOPHEN 325 MG TABLET (FP) PO PRN (15:52)
[2018-04-19] MEDS ORDERED: guaiFENesin/D-METHORPHAN HB 10 ML UNIT-DOSE CUPS PO PRN (15:52)
[2018-04-19] MEDS ORDERED: LOPERAMIDE HCL 2 MG CAPSULE PO PRN (15:52)
--- NOTE | 2018-04-19 16:30 | DS ---
[facility] Detox Discharge Summary Admission Date: 04/17/18 Discharge Date: 04/19/18 - History Present History: Alcohol Dependence, Opioid Dependence Additional Comments: Patient admitted with alcohol and opiate withdrawal symptoms Pertinent Past History: Patient with alcohol use since age 13 and opiate use since age 23. Nicotine use since age 13. Recent treatment for gonorrhea. - Physical Exam Results Vital Signs: Vital Signs Temperature 98.8 F 04/19/18 13:18 Pulse Rate 78 04/19/18 13:18 Respiratory Rate 18 04/19/18 13:18 Blood Pressure 130/84 04/19/18 13:18 O2 Sat by Pulse Oximetry (%) Pertinent Admission Physical Exam Findings: Patient admitted with alcohol and opaite withdrawal symptoms. Laboratory Last Values WBC 7.6 K/mm3 (4.0-10.0) 04/18/18 07:40 RBC 4.69 M/mm3 (4.00-5.60) 04/18/18 07:40 Hgb 13.9 GM/dL (11.7-16.9) 04/18/18 07:40 Hct 42.1 % (35.4-49) 04/18/18 07:40 MCV 89.7 fl (80-96) 04/18/18 07:40 MCH 29.7 pg (25.7-33.7) 04/18/18 07:40 MCHC 33.1 g/dl (32.0-35.9) 04/18/18 07:40 RDW 14.3 % (11.9-15.9) 04/18/18 07:40 Plt Count 232 K/MM3 (134-434) D 04/18/18 07:40 MPV 9.9 fl (7.5-11.1) 04/18/18 07:40 Sodium 138 mmol/L (136-145) 04/18/18 07:40 Potassium 4.1 mmol/L (3.5-5.1) 04/18/18 07:40 Chloride 102 mmol/L (98-107) 04/18/18 07:40 Carbon Dioxide 25 mmol/L (21-32) 04/18/18 07:40 Anion Gap 10 MMOL/L (8-16) 04/18/18 07:40 BUN 17 mg/dL (7-18) 04/18/18 07:40 Creatinine 1.0 mg/dL (0.55-1.3) 04/18/18 07:40 Creat Clearance w eGFR > 60 (>60) 04/18/18 07:40 Random Glucose 88 mg/dL (74-106) 04/18/18 07:40 Calcium 9.0 mg/dL (8.5-10.1) 04/18/18 07:40 Total Bilirubin 0.6 mg/dL (0.2-1) 04/18/18 07:40 AST 21 U/L (15-37) 04/18/18 07:40 ALT 30 U/L (13-61) 04/18/18 07:40 Alkaline Phosphatase 63 U/L (45-117) 04/18/18 07:40 Total Protein 7.2 g/dl (6.4-8.2) 04/18/18 07:40 Albumin 4.1 g/dl (3.4-5.0) 04/18/18 07:40 RPR Titer Nonreactive (NONREACTIVE) 04/18/18 07:40 HIV 1&2 Antibody Screen Negative 04/17/18 06:00 HIV P24 Antigen Negative 04/17/18 06:00 Labs reviewed. - Treatment Hospital Course: Detox Protocol Followed (Patient did not complete detox protoc. ), Discharged Condition Good (Alert and oriented at time of discharge.) - Medication Discharge Medications: Ambulatory Orders NK [No Known Home Medication] 11/14/16 - AMA Did Patient Leave Against Medical Advice: Yes (Refused to stay despite encouragement.)
[2018-04-19] MEDS ORDERED: chlordiazePOXIDE 5 MG CAPSULE PO SCH (17:00)
[2018-04-19] MEDS ORDERED: THIAMINE HCL 100 MG TABLET (FP) PO SCH (22:00)
[2018-04-19] MEDS ORDERED: MELATONIN 5 MG TABLETS PO PRN (22:00)
[2018-04-20] MEDS ORDERED: PRENATAL VITAMINS W/ FOLIC ACID TABLET (FP) PO SCH (10:00)
[2018-04-20] MEDS ORDERED: chlordiazePOXIDE HCL 10 MG CAPSULE PO SCH (17:00)
[2018-04-21] MEDS ORDERED: METHADONE HCL 10 MG TABLET (FOR DETOX USE ONLY) PO SCH (10:00)
[2018-04-22] MEDS ORDERED: METHADONE HCL 5 MG TABLET (FOR DETOX USE ONLY) PO SCH (06:00)
== END 2018-04-19 16:50 | disposition left against medical advice (07) | DRG 770 ==
LOC: YASAS 08:58 → Y3N 13:36
PROC: HZ2ZZZZ Detoxification Services for Substance Abuse Treatment (ICD-10-PCS; principal; 2018-04-17)
DX: F11.23 Opioid dependence with withdrawal (principal); F10.230 Alcohol dependence with withdrawal, uncomplicated; F17.210 Nicotine dependence, cigarettes, uncomplicated; G47.00 Insomnia, unspecified; Z87.438 Personal history of other diseases of male genital organs
CPT/HCPCS: 36415; 80053; 85027; 86593; 87389; J0735

== ENCOUNTER 2019-02-20 08:26 | Inpatient (IN) | payer OTHER ==
[2019-02-20 09:09] VITALS: BMI 45.4
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
[2019-02-20] MEDS ORDERED: LOPERAMIDE HCL 2 MG CAPSULE PO PRN (09:40)
[2019-02-20] MEDS ORDERED: P-EPHED 60MG/TRIPROLIDI 2.5MG TABLET PO PRN (09:40)
[2019-02-20] MEDS ORDERED: MENTHOL/PHENOL 1 EACH UD MM PRN (09:40)
[2019-02-20] MEDS ORDERED: ACETAMINOPHEN 325 MG TABLET (FP) PO PRN (09:40)
[2019-02-20] MEDS ORDERED: MAGNESIUM CITRATE 300 ML BOTTLE PO PRN (09:40)
[2019-02-20] MEDS ORDERED: guaiFENesin 200 MG/10 ML 10 ML UNIT-DOSE CUPS PO PRN (09:40)
[2019-02-20] MEDS ORDERED: IBUPROFEN 400 MG TABLET (FP) PO PRN (09:40)
[2019-02-20] MEDS ORDERED: METHADONE HCL 10 MG TABLET PO SCH (10:00)
[2019-02-20] MEDS ORDERED: METHADONE HCL 40 MG DISPERSABLE TABLET ONE (11:51)
[2019-02-20] MEDS ORDERED: METHADONE HCL 10 MG TABLET ONE (11:51)
[2019-02-20] MEDS: METHADONE 80 MG, METHADONE 10 MG PO SCH (11:51)
[2019-02-20] MEDS: PANTOPRAZOLE 20 MG TABLET (FP) PO SCH (11:53)
[2019-02-20] MEDS: LISINOPRIL 10 MG TABLET (FP) PO SCH (11:53)
[2019-02-20] MEDS: metFORMIN HCL 500 MG TABLET (FP) PO SCH ×2 (11:53→16:38)
[2019-02-20] MEDS: BACITRACIN/POLYMYXIN B SULFATE 15 GM TUBE TP SCH ×2 (11:54→21:44)
[2019-02-20] MEDS: PRENATAL VITAMINS W/ FOLIC ACID TABLET (FP) PO SCH (11:56)
[2019-02-20 12:20] LABS: HEMATOCRIT 41.8 % (35.4-49); HEMOGLOBIN 13.9 GM/dL (11.7-16.9); MCH 29.9 pg (25.7-33.7); MCHC 33.3 g/dl (32.0-35.9); MEAN CELL VOLUME 89.7 fl (80-96); PLATELET COUNT 262 K/MM3 (134-434); RBC 4.66 M/mm3 (4.00-5.60); RDW 14.3 % (11.9-15.9); WHITE BLOOD COUNT 8.8 K/mm3 (4.0-10.0)
[2019-02-20 12:36] LABS: BILIRUBIN,TOTAL 0.2 mg/dL (0.2-1); BLOOD UREA NITROGEN 22.9 mg/dL (7-18); CALCIUM 8.9 mg/dL (8.5-10.1); CREATININE 1.1 mg/dL (0.55-1.3); POTASSIUM 4.4 mmol/L (3.5-5.1); TOT PROT 7.5 g/dl (6.4-8.2)
[2019-02-20] MEDS ORDERED: INSULIN SLIDING SCALE (NOVOLOG) 1 VIAL SQ SCH (16:30)
[2019-02-20] MEDS: INSULIN SLIDING SCALE (NOVOLOG) 1 VIAL SQ SCH (16:40)
[2019-02-20] MEDS: THIAMINE HCL 100 MG TABLET (FP) PO SCH (21:44)
[2019-02-21] MEDS: METHADONE 80 MG, METHADONE 10 MG PO SCH (06:36)
[2019-02-21] MEDS ORDERED: METHADONE HCL 10 MG TABLET ONE (06:36)
[2019-02-21] MEDS: metFORMIN HCL 500 MG TABLET (FP) PO SCH ×2 (06:36→16:40)
[2019-02-21] MEDS ORDERED: METHADONE HCL 40 MG DISPERSABLE TABLET ONE (06:36)
[2019-02-21] MEDS: INSULIN SLIDING SCALE (NOVOLOG) 1 VIAL SQ SCH ×2 (07:19→16:40)
[2019-02-21] MEDS: PRENATAL VITAMINS W/ FOLIC ACID TABLET (FP) PO SCH (09:23)
[2019-02-21] MEDS: BACITRACIN/POLYMYXIN B SULFATE 15 GM TUBE TP SCH ×2 (09:23→21:35)
[2019-02-21] MEDS: PANTOPRAZOLE 20 MG TABLET (FP) PO SCH (09:24)
[2019-02-21] MEDS: LISINOPRIL 10 MG TABLET (FP) PO SCH (09:24)
[2019-02-21 15:39] LABS: PH,URINE 6.5 (5.0-8.0); URINE APPEARANCE CLEAR; URINE BILIRUBIN NEGATIVE (NEGATIVE); URINE COLOR YELLOW; URINE GLUCOSE (UA) NEGATIVE (NEGATIVE); URINE KETONE NEGATIVE (NEGATIVE); URINE LEUK ESTERASE NEGATIVE (NEGATIVE); URINE NITRITE NEGATIVE (NEGATIVE); URINE PROTEIN NEGATIVE (NEGATIVE); URINE UROBILINOGEN 0.2 mg/dL (0.2-1.0)
[2019-02-21] MEDS: MELATONIN 5 MG TABLETS PO PRN (21:35)
[2019-02-21] MEDS: THIAMINE HCL 100 MG TABLET (FP) PO SCH (21:35)
[2019-02-22] MEDS ORDERED: METHADONE HCL 10 MG TABLET ONE (05:55)
[2019-02-22] MEDS ORDERED: METHADONE HCL 40 MG DISPERSABLE TABLET ONE (05:55)
[2019-02-22] MEDS: METHADONE 80 MG, METHADONE 10 MG PO SCH (06:10)
[2019-02-22] MEDS: metFORMIN HCL 500 MG TABLET (FP) PO SCH ×2 (06:11→16:35)
[2019-02-22] MEDS: INSULIN SLIDING SCALE (NOVOLOG) 1 VIAL SQ SCH ×2 (06:51→16:41)
[2019-02-22] MEDS: PANTOPRAZOLE 20 MG TABLET (FP) PO SCH (09:54)
[2019-02-22] MEDS: PRENATAL VITAMINS W/ FOLIC ACID TABLET (FP) PO SCH (09:54)
[2019-02-22] MEDS: LISINOPRIL 10 MG TABLET (FP) PO SCH (09:54)
[2019-02-22] MEDS: BACITRACIN/POLYMYXIN B SULFATE 15 GM TUBE TP SCH ×2 (09:55→21:28)
[2019-02-22] MEDS: MELATONIN 5 MG TABLETS PO PRN (21:28)
[2019-02-22] MEDS: THIAMINE HCL 100 MG TABLET (FP) PO SCH (21:29)
[2019-02-23] MEDS ORDERED: METHADONE HCL 10 MG TABLET ONE (05:56)
[2019-02-23] MEDS ORDERED: METHADONE HCL 40 MG DISPERSABLE TABLET ONE (05:57)
[2019-02-23] MEDS: METHADONE 80 MG, METHADONE 10 MG PO SCH (06:38)
[2019-02-23] MEDS: metFORMIN HCL 500 MG TABLET (FP) PO SCH ×2 (06:38→16:41)
[2019-02-23] MEDS: INSULIN SLIDING SCALE (NOVOLOG) 1 VIAL SQ SCH ×2 (07:33→16:53)
[2019-02-23] MEDS: PANTOPRAZOLE 20 MG TABLET (FP) PO SCH (10:22)
[2019-02-23] MEDS: PRENATAL VITAMINS W/ FOLIC ACID TABLET (FP) PO SCH (10:22)
[2019-02-23] MEDS: LISINOPRIL 10 MG TABLET (FP) PO SCH (10:22)
[2019-02-23] MEDS: BACITRACIN/POLYMYXIN B SULFATE 15 GM TUBE TP SCH ×2 (10:22→21:27)
[2019-02-23] MEDS: MELATONIN 5 MG TABLETS PO PRN (21:27)
[2019-02-23] MEDS: THIAMINE HCL 100 MG TABLET (FP) PO SCH (21:27)
[2019-02-24] MEDS ORDERED: METHADONE HCL 40 MG DISPERSABLE TABLET ONE (06:14)
[2019-02-24] MEDS ORDERED: METHADONE HCL 10 MG TABLET ONE (06:14)
[2019-02-24] MEDS: METHADONE 80 MG, METHADONE 10 MG PO SCH (06:46)
[2019-02-24] MEDS: metFORMIN HCL 500 MG TABLET (FP) PO SCH ×2 (06:47→16:51)
[2019-02-24] MEDS: INSULIN SLIDING SCALE (NOVOLOG) 1 VIAL SQ SCH ×2 (08:19→16:51)
[2019-02-24] MEDS: PRENATAL VITAMINS W/ FOLIC ACID TABLET (FP) PO SCH (10:39)
[2019-02-24] MEDS: LISINOPRIL 10 MG TABLET (FP) PO SCH (10:39)
[2019-02-24] MEDS: PANTOPRAZOLE 20 MG TABLET (FP) PO SCH (10:39)
[2019-02-24] MEDS: BACITRACIN/POLYMYXIN B SULFATE 15 GM TUBE TP SCH ×2 (10:40→21:51)
[2019-02-24] MEDS ORDERED: COLLOIDAL OATMEAL 1 BAR EACH TP PRN (13:53)
[2019-02-24] MEDS: MELATONIN 5 MG TABLETS PO PRN (21:51)
[2019-02-24] MEDS: MAGNESIUM HYDROX 2400MG/30ML ORAL SUSPENSION 30 ML CUP PO PRN (21:51)
[2019-02-24] MEDS: THIAMINE HCL 100 MG TABLET (FP) PO SCH (22:12)
[2019-02-24] MEDS ORDERED: POLYETHYLENE GLYCOL 3350 119 GM BTL PO ONE ×2 (22:30→23:55)
--- NOTE | 2019-02-24 22:36 | PN ---
[facility] Progress Note Note: c/o severe constipation. States attributes it to methadone. Denies abd pain, nausea, vomiting. Vital Signs - 24 hr 02/24/19 02/24/19 02/24/19 00:30 03:30 07:20 Temperature 97.7 F Pulse Rate 54 L Respiratory 18 18 18 Rate Blood Pressure 121/86 02/24/19 11:36 Temperature 97.7 F Pulse Rate 63 Respiratory 19 Rate Blood Pressure 120/83 Will give 2 doses Miralax and then start on colace in 2 days.
[2019-02-25] MEDS ORDERED: METHADONE HCL 40 MG DISPERSABLE TABLET ONE (03:17)
[2019-02-25] MEDS ORDERED: METHADONE HCL 10 MG TABLET ONE (03:17)
[2019-02-25] MEDS: METHADONE 80 MG, METHADONE 10 MG PO SCH (06:17)
[2019-02-25] MEDS: metFORMIN HCL 500 MG TABLET (FP) PO SCH ×2 (06:18→16:54)
[2019-02-25] MEDS: INSULIN SLIDING SCALE (NOVOLOG) 1 VIAL SQ SCH ×2 (06:40→16:55)
[2019-02-25] MEDS: PANTOPRAZOLE 20 MG TABLET (FP) PO SCH (10:25)
[2019-02-25] MEDS: LISINOPRIL 10 MG TABLET (FP) PO SCH (10:25)
[2019-02-25] MEDS: BACITRACIN/POLYMYXIN B SULFATE 15 GM TUBE TP SCH ×2 (10:26→21:48)
[2019-02-25] MEDS: PRENATAL VITAMINS W/ FOLIC ACID TABLET (FP) PO SCH (10:26)
[2019-02-25] MEDS: THIAMINE HCL 100 MG TABLET (FP) PO SCH (21:48)
[2019-02-25] MEDS: MELATONIN 5 MG TABLETS PO PRN (21:49)
[2019-02-26] MEDS ORDERED: METHADONE HCL 10 MG TABLET ONE (05:56)
[2019-02-26] MEDS ORDERED: METHADONE HCL 40 MG DISPERSABLE TABLET ONE (05:56)
[2019-02-26] MEDS: METHADONE 80 MG, METHADONE 10 MG PO SCH (06:05)
[2019-02-26] MEDS: DOCUSATE SODIUM 100 MG CAPSULE (FP) PO SCH ×3 (06:06→21:45)
[2019-02-26] MEDS: metFORMIN HCL 500 MG TABLET (FP) PO SCH ×2 (06:06→16:43)
[2019-02-26] MEDS: INSULIN SLIDING SCALE (NOVOLOG) 1 VIAL SQ SCH ×2 (07:52→16:43)
[2019-02-26] MEDS: LISINOPRIL 10 MG TABLET (FP) PO SCH (10:33)
[2019-02-26] MEDS: PANTOPRAZOLE 20 MG TABLET (FP) PO SCH (10:33)
[2019-02-26] MEDS: PRENATAL VITAMINS W/ FOLIC ACID TABLET (FP) PO SCH (10:33)
[2019-02-26] MEDS: BACITRACIN/POLYMYXIN B SULFATE 15 GM TUBE TP SCH ×2 (10:34→21:46)
[2019-02-26] MEDS ORDERED: TUBERCULIN PPD 5 TU/0.1ML VIAL ID ONE (11:16)
[2019-02-26] MEDS: MAG HYDROX/AL HYDROX/SIMETH 30 ML UNIT-DOSE CUP PO PRN (11:48)
--- NOTE | 2019-02-26 12:14 | PN ---
S Progress Note (SOAP) Subjective: Pt c/o chest discomfort per nurse Sachi Swenson. Pt was seen and states a sudden sharp painful,burning sensation from upper abdomen to throat and radiates sometimes to right chest/all over. states has not drank water today except citrus and other juices and coffee in the day room. Hx of GERD and currently on protonix 20 mg daily. Pt reports no BM today,last moved yesterday. Denies nausea/vomiting/diarrhea. Denies fever. Pt has a hx of Type 2 DM on Metformin 500 mg po bid, HTN on Lisinopril 10 mg daily. Objective: 02/26/19 12:28 Vital Signs - 24 hr 02/26/19 02/26/19 02/26/19 00:30 01:26 03:30 Temperature Pulse Rate Respiratory 16 16 18 Rate Blood Pressure 02/26/19 07:27 Temperature 97.3 F L Pulse Rate 57 L Respiratory 18 Rate Blood Pressure 108/73 Laboratory Tests 02/20/19 02/20/19 02/20/19 10:00 10:00 10:00 WBC 8.8 RBC 4.66 Hgb 13.9 Hct 41.8 MCV 89.7 MCH 29.9 MCHC 33.3 RDW 14.3 Plt Count 262 MPV 9.0 Sodium 139 Potassium 4.4 Chloride 100 Carbon Dioxide 30 Anion Gap 9 BUN 22.9 H Creatinine 1.1 Est GFR (CKD-EPI)AfAm 90.88 Est GFR (CKD-EPI)NonAf 78.41 POC Glucometer Random Glucose 102 Calcium 8.9 Total Bilirubin 0.2 AST 28 ALT 34 Alkaline Phosphatase 84 Total Protein 7.5 Albumin 4.0 Urine Color Urine Appearance Urine pH Ur Specific [place] Urine Protein Urine Glucose (UA) Urine Ketones Urine Blood Urine Nitrite Urine Bilirubin Urine Urobilinogen Ur Leukocyte Esterase RPR Titer Nonreactive HIV 1&2 Antibody Screen HIV P24 Antigen 02/20/19 02/20/19 02/21/19 10:14 16:39 06:33 WBC RBC Hgb Hct MCV MCH MCHC RDW Plt Count MPV Sodium Potassium Chloride Carbon Dioxide Anion Gap BUN Creatinine Est GFR (CKD-EPI)AfAm Est GFR (CKD-EPI)NonAf POC Glucometer 97 98 84 Random Glucose Calcium Total Bilirubin AST ALT Alkaline Phosphatase Total Protein Albumin Urine Color Urine Appearance Urine pH Ur Specific [place] Urine Protein Urine Glucose (UA) Urine Ketones Urine Blood Urine Nitrite Urine Bilirubin Urine Urobilinogen Ur Leukocyte Esterase RPR Titer HIV 1&2 Antibody Screen HIV P24 Antigen 02/21/19 02/21/19 02/22/19 12:23 16:39 06:09 WBC RBC Hgb Hct MCV MCH MCHC RDW Plt Count MPV Sodium Potassium Chloride Carbon Dioxide Anion Gap BUN Creatinine Est GFR (CKD-EPI)AfAm Est GFR (CKD-EPI)NonAf POC Glucometer 108 105 Random Glucose Calcium Total Bilirubin AST ALT Alkaline Phosphatase Total Protein Albumin Urine Color Yellow Urine Appearance Clear Urine pH 6.5 D Ur Specific [place] 1.019 Urine Protein Negative Urine Glucose (UA) Negative Urine Ketones Negative Urine Blood Negative Urine Nitrite Negative Urine Bilirubin Negative Urine Urobilinogen 0.2 Ur Leukocyte Esterase Negative RPR Titer HIV 1&2 Antibody Screen HIV P24 Antigen 02/22/19 02/23/19 02/23/19 16:34 06:37 16:40 WBC RBC Hgb Hct MCV MCH MCHC RDW Plt Count MPV Sodium Potassium Chloride Carbon Dioxide Anion Gap BUN Creatinine Est GFR (CKD-EPI)AfAm Est GFR (CKD-EPI)NonAf POC Glucometer 64 91 105 Random Glucose Calcium Total Bilirubin AST ALT Alkaline Phosphatase Total Protein Albumin Urine Color Urine Appearance Urine pH Ur Specific [place] Urine Protein Urine Glucose (UA) Urine Ketones Urine Blood Urine Nitrite Urine Bilirubin Urine Urobilinogen Ur Leukocyte Esterase RPR Titer HIV 1&2 Antibody Screen HIV P24 Antigen 02/24/19 02/24/19 02/25/19 06:45 16:50 06:16 WBC RBC Hgb Hct MCV MCH MCHC RDW Plt Count MPV Sodium Potassium Chloride Carbon Dioxide Anion Gap BUN Creatinine Est GFR (CKD-EPI)AfAm Est GFR (CKD-EPI)NonAf POC Glucometer 90 129 88 Random Glucose Calcium Total Bilirubin AST ALT Alkaline Phosphatase Total Protein Albumin Urine Color Urine Appearance Urine pH Ur Specific [place] Urine Protein Urine Glucose (UA) Urine Ketones Urine Blood Urine Nitrite Urine Bilirubin Urine Urobilinogen Ur Leukocyte Esterase RPR Titer HIV 1&2 Antibody Screen HIV P24 Antigen 02/25/19 02/25/19 02/26/19 08:40 16:40 06:03 WBC RBC Hgb Hct MCV MCH MCHC RDW Plt Count MPV Sodium Potassium Chloride Carbon Dioxide Anion Gap BUN Creatinine Est GFR (CKD-EPI)AfAm Est GFR (CKD-EPI)NonAf POC Glucometer 128 88 Random Glucose Calcium Total Bilirubin AST ALT Alkaline Phosphatase Total Protein Albumin Urine Color Urine Appearance Urine pH Ur Specific [place] Urine Protein Urine Glucose (UA) Urine Ketones Urine Blood Urine Nitrite Urine Bilirubin Urine Urobilinogen Ur Leukocyte Esterase RPR Titer HIV 1&2 Antibody Screen Negative HIV P24 Antigen Negative Alert o x 3 oob ambulating with steady gait with nad cardiac:s1 s2, rr lungs:cta,gage. abdomen:+bs,++fatty,nt on palpation extremities/skin:no edema,full ROM,skin intact VS @ 10a.m bp 107/70 p 60 VS @ 11:45 a.m(at time of complaint) bp 119/72 p58 pulse ox 97% room air EKG:sinus Bradycardia HR 58 bpm Early polarization otherwise, normal ECG when compared to EKG of 03/03/18(NSR,Early Repolarization,Normal ECG,Rates:62 bpm), no significant change noted. 02/26/19 12:41 02/26/19 12:45 Assessment: 02/26/19 12:30 Hx GERD-Acid Reflux reaction DM Obesity (BMI 45.5) Plan: D/w pt to increase fluid(water) Crystal light beverage with meals and snacks EKG now, done as last EKG was about one year ago 03/03/18. Increase protonix 40 mg po daily starting 02/27/19, give additional protonix 20 mg po now. [place] prn as directed Monitor patient and pt may transfer to [facility] if symptoms persists. Patient agrees to poc
[2019-02-26] MEDS ORDERED: PANTOPRAZOLE 20 MG TABLET (FP) PO ONE (12:30)
[2019-02-26] MEDS ORDERED: PANTOPRAZOLE 20 MG TABLET (FP) PO SCH (12:45)
[2019-02-26] MEDS: MELATONIN 5 MG TABLETS PO PRN (21:45)
[2019-02-26] MEDS: THIAMINE HCL 100 MG TABLET (FP) PO SCH (21:46)
[2019-02-27] MEDS ORDERED: METHADONE HCL 10 MG TABLET ONE (05:52)
[2019-02-27] MEDS ORDERED: METHADONE HCL 40 MG DISPERSABLE TABLET ONE (05:52)
[2019-02-27] MEDS: METHADONE 80 MG, METHADONE 10 MG PO SCH (06:03)
[2019-02-27] MEDS: DOCUSATE SODIUM 100 MG CAPSULE (FP) PO SCH ×3 (06:05→21:40)
[2019-02-27] MEDS: metFORMIN HCL 500 MG TABLET (FP) PO SCH ×2 (07:45→17:03)
[2019-02-27] MEDS: PANTOPRAZOLE 40 MG TABLET (FP) PO SCH (10:45)
[2019-02-27] MEDS: LISINOPRIL 10 MG TABLET (FP) PO SCH (10:45)
[2019-02-27] MEDS: PRENATAL VITAMINS W/ FOLIC ACID TABLET (FP) PO SCH (10:45)
[2019-02-27] MEDS: BACITRACIN/POLYMYXIN B SULFATE 15 GM TUBE TP SCH ×2 (10:46→21:41)
--- NOTE | 2019-02-27 13:37 | EKG ---
Test Reason : Blood Pressure : / mmHG Vent. Rate : 050 BPM Atrial Rate : 050 BPM P-R Int : 134 ms QRS Dur : 074 ms QT Int : 444 ms P-R-T Axes : 019 060 043 degrees QTc Int : 404 ms SINUS BRADYCARDIA EARLY REPOLARIZATION OTHERWISE NORMAL ECG WHEN COMPARED WITH ECG OF 03-MAR-2018 15:17, NO SIGNIFICANT CHANGE WAS FOUND Confirmed by KARLEY HART MD ([id number]) on 02/27/2019 1:36:55 PM Referred By: Renetta SIM Confirmed By:KARLEY HART MD
[2019-02-27] MEDS: INSULIN SLIDING SCALE (NOVOLOG) 1 VIAL SQ SCH ×2 (17:04→17:07)
[2019-02-27] MEDS: MELATONIN 5 MG TABLETS PO PRN (21:41)
[2019-02-27] MEDS: THIAMINE HCL 100 MG TABLET (FP) PO SCH (21:41)
[2019-02-28] MEDS ORDERED: METHADONE HCL 10 MG TABLET PO SCH (06:00)
[2019-02-28] MEDS ORDERED: METHADONE HCL 10 MG TABLET ONE (06:28)
[2019-02-28] MEDS ORDERED: METHADONE HCL 40 MG DISPERSABLE TABLET ONE (06:29)
[2019-02-28] MEDS: METHADONE 80 MG, METHADONE 10 MG PO SCH (06:29)
[2019-02-28] MEDS: metFORMIN HCL 500 MG TABLET (FP) PO SCH ×2 (06:31→17:35)
[2019-02-28] MEDS: DOCUSATE SODIUM 100 MG CAPSULE (FP) PO SCH ×3 (06:31→21:57)
[2019-02-28] MEDS: INSULIN SLIDING SCALE (NOVOLOG) 1 VIAL SQ SCH ×2 (06:54→17:34)
[2019-02-28] MEDS: PANTOPRAZOLE 40 MG TABLET (FP) PO SCH (10:39)
[2019-02-28] MEDS: BACITRACIN/POLYMYXIN B SULFATE 15 GM TUBE TP SCH ×2 (10:39→21:57)
[2019-02-28] MEDS: PRENATAL VITAMINS W/ FOLIC ACID TABLET (FP) PO SCH (10:39)
[2019-02-28] MEDS: LISINOPRIL 10 MG TABLET (FP) PO SCH (10:39)
[2019-02-28] MEDS: THIAMINE HCL 100 MG TABLET (FP) PO SCH (21:57)
[2019-02-28] MEDS: MELATONIN 5 MG TABLETS PO PRN (21:58)
[2019-03-01] MEDS ORDERED: METHADONE HCL 40 MG DISPERSABLE TABLET ONE (05:42)
[2019-03-01] MEDS ORDERED: METHADONE HCL 10 MG TABLET ONE (05:42)
[2019-03-01] MEDS: DOCUSATE SODIUM 100 MG CAPSULE (FP) PO SCH ×3 (06:09→21:41)
[2019-03-01] MEDS: METHADONE 80 MG, METHADONE 10 MG PO SCH (06:09)
[2019-03-01] MEDS: metFORMIN HCL 500 MG TABLET (FP) PO SCH ×2 (06:13→16:35)
[2019-03-01] MEDS: INSULIN SLIDING SCALE (NOVOLOG) 1 VIAL SQ SCH ×2 (06:14→16:35)
[2019-03-01] MEDS: LISINOPRIL 10 MG TABLET (FP) PO SCH (10:01)
[2019-03-01] MEDS: PANTOPRAZOLE 40 MG TABLET (FP) PO SCH (10:01)
[2019-03-01] MEDS: BACITRACIN/POLYMYXIN B SULFATE 15 GM TUBE TP SCH ×2 (10:01→21:41)
[2019-03-01] MEDS: PRENATAL VITAMINS W/ FOLIC ACID TABLET (FP) PO SCH (10:01)
[2019-03-01] MEDS: THIAMINE HCL 100 MG TABLET (FP) PO SCH (21:41)
[2019-03-01] MEDS: hydrOXYzine PAMOATE 25 MG CAPSULE (FP) PO PRN (21:42)
[2019-03-02] MEDS ORDERED: METHADONE HCL 40 MG DISPERSABLE TABLET ONE (03:03)
[2019-03-02] MEDS ORDERED: METHADONE HCL 10 MG TABLET ONE (03:03)
[2019-03-02] MEDS: metFORMIN HCL 500 MG TABLET (FP) PO SCH ×2 (06:13→17:02)
[2019-03-02] MEDS: METHADONE 80 MG, METHADONE 10 MG PO SCH (06:15)
[2019-03-02] MEDS: INSULIN SLIDING SCALE (NOVOLOG) 1 VIAL SQ SCH ×2 (07:43→17:02)
[2019-03-02] MEDS: DOCUSATE SODIUM 100 MG CAPSULE (FP) PO SCH ×3 (07:50→21:40)
[2019-03-02] MEDS: LISINOPRIL 10 MG TABLET (FP) PO SCH (10:27)
[2019-03-02] MEDS: PRENATAL VITAMINS W/ FOLIC ACID TABLET (FP) PO SCH (10:27)
[2019-03-02] MEDS: BACITRACIN/POLYMYXIN B SULFATE 15 GM TUBE TP SCH ×2 (10:27→21:40)
[2019-03-02] MEDS: PANTOPRAZOLE 40 MG TABLET (FP) PO SCH (10:27)
[2019-03-02] MEDS: MELATONIN 5 MG TABLETS PO PRN (21:40)
[2019-03-02] MEDS: THIAMINE HCL 100 MG TABLET (FP) PO SCH (21:40)
[2019-03-02] MEDS: hydrOXYzine PAMOATE 25 MG CAPSULE (FP) PO PRN (21:41)
[2019-03-03] MEDS ORDERED: METHADONE HCL 10 MG TABLET ONE (06:18)
[2019-03-03] MEDS: METHADONE 80 MG, METHADONE 10 MG PO SCH (06:18)
[2019-03-03] MEDS ORDERED: METHADONE HCL 40 MG DISPERSABLE TABLET ONE (06:18)
[2019-03-03] MEDS: metFORMIN HCL 500 MG TABLET (FP) PO SCH ×2 (06:19→17:04)
[2019-03-03] MEDS: DOCUSATE SODIUM 100 MG CAPSULE (FP) PO SCH ×3 (07:00→22:20)
[2019-03-03] MEDS: INSULIN SLIDING SCALE (NOVOLOG) 1 VIAL SQ SCH ×2 (07:08→17:07)
[2019-03-03] MEDS: BACITRACIN/POLYMYXIN B SULFATE 15 GM TUBE TP SCH ×2 (10:45→22:20)
[2019-03-03] MEDS: PRENATAL VITAMINS W/ FOLIC ACID TABLET (FP) PO SCH (10:45)
[2019-03-03] MEDS: PANTOPRAZOLE 40 MG TABLET (FP) PO SCH (10:45)
[2019-03-03] MEDS: LISINOPRIL 10 MG TABLET (FP) PO SCH (10:45)
[2019-03-03] MEDS: THIAMINE HCL 100 MG TABLET (FP) PO SCH (22:21)
[2019-03-04] MEDS ORDERED: METHADONE HCL 40 MG DISPERSABLE TABLET ONE (05:42)
[2019-03-04] MEDS ORDERED: METHADONE HCL 10 MG TABLET ONE (05:42)
[2019-03-04] MEDS: DOCUSATE SODIUM 100 MG CAPSULE (FP) PO SCH ×3 (06:09→21:29)
[2019-03-04] MEDS: metFORMIN HCL 500 MG TABLET (FP) PO SCH ×2 (06:09→16:54)
[2019-03-04] MEDS: METHADONE 80 MG, METHADONE 10 MG PO SCH (06:09)
[2019-03-04] MEDS: INSULIN SLIDING SCALE (NOVOLOG) 1 VIAL SQ SCH ×2 (08:43→17:09)
[2019-03-04] MEDS: BACITRACIN/POLYMYXIN B SULFATE 15 GM TUBE TP SCH ×2 (10:36→21:30)
[2019-03-04] MEDS: PRENATAL VITAMINS W/ FOLIC ACID TABLET (FP) PO SCH (10:36)
[2019-03-04] MEDS: PANTOPRAZOLE 40 MG TABLET (FP) PO SCH (10:36)
[2019-03-04] MEDS: LISINOPRIL 10 MG TABLET (FP) PO SCH (11:00)
[2019-03-04] MEDS: THIAMINE HCL 100 MG TABLET (FP) PO SCH (21:30)
[2019-03-05] MEDS ORDERED: METHADONE HCL 40 MG DISPERSABLE TABLET ONE (05:00)
[2019-03-05] MEDS ORDERED: METHADONE HCL 10 MG TABLET ONE (05:00)
[2019-03-05] MEDS: metFORMIN HCL 500 MG TABLET (FP) PO SCH ×2 (06:33→17:01)
[2019-03-05] MEDS: DOCUSATE SODIUM 100 MG CAPSULE (FP) PO SCH ×3 (06:33→21:28)
[2019-03-05] MEDS: METHADONE 80 MG, METHADONE 10 MG PO SCH (06:33)
[2019-03-05] MEDS: INSULIN SLIDING SCALE (NOVOLOG) 1 VIAL SQ SCH ×2 (07:09→17:01)
[2019-03-05] MEDS: BACITRACIN/POLYMYXIN B SULFATE 15 GM TUBE TP SCH ×2 (10:46→21:29)
[2019-03-05] MEDS: PRENATAL VITAMINS W/ FOLIC ACID TABLET (FP) PO SCH (10:46)
[2019-03-05] MEDS: LISINOPRIL 10 MG TABLET (FP) PO SCH (10:47)
[2019-03-05] MEDS: PANTOPRAZOLE 40 MG TABLET (FP) PO SCH (10:47)
[2019-03-05] MEDS: THIAMINE HCL 100 MG TABLET (FP) PO SCH (21:28)
[2019-03-05] MEDS: MELATONIN 5 MG TABLETS PO PRN (21:29)
[2019-03-05] MEDS: MAG HYDROX/AL HYDROX/SIMETH 30 ML UNIT-DOSE CUP PO PRN (21:30)
[2019-03-06] MEDS ORDERED: METHADONE HCL 10 MG TABLET ONE (05:43)
[2019-03-06] MEDS ORDERED: METHADONE HCL 40 MG DISPERSABLE TABLET ONE (05:44)
[2019-03-06] MEDS ORDERED: METHADONE HCL 10 MG TABLET PO SCH (06:00)
[2019-03-06] MEDS: DOCUSATE SODIUM 100 MG CAPSULE (FP) PO SCH ×3 (06:16→21:36)
[2019-03-06] MEDS: METHADONE 80 MG, METHADONE 10 MG PO SCH (06:16)
[2019-03-06] MEDS: metFORMIN HCL 500 MG TABLET (FP) PO SCH ×2 (06:18→16:44)
[2019-03-06] MEDS: INSULIN SLIDING SCALE (NOVOLOG) 1 VIAL SQ SCH ×2 (06:19→17:39)
[2019-03-06] MEDS: LISINOPRIL 10 MG TABLET (FP) PO SCH (10:57)
[2019-03-06] MEDS: PANTOPRAZOLE 40 MG TABLET (FP) PO SCH (10:57)
[2019-03-06] MEDS: PRENATAL VITAMINS W/ FOLIC ACID TABLET (FP) PO SCH (10:58)
[2019-03-06] MEDS: BACITRACIN/POLYMYXIN B SULFATE 15 GM TUBE TP SCH ×2 (10:58→21:36)
[2019-03-06] MEDS: hydrOXYzine PAMOATE 25 MG CAPSULE (FP) PO PRN (21:36)
[2019-03-06] MEDS: THIAMINE HCL 100 MG TABLET (FP) PO SCH (21:36)
[2019-03-07] MEDS ORDERED: METHADONE HCL 40 MG DISPERSABLE TABLET ONE (05:45)
[2019-03-07] MEDS ORDERED: METHADONE HCL 10 MG TABLET ONE (05:45)
[2019-03-07] MEDS: metFORMIN HCL 500 MG TABLET (FP) PO SCH ×2 (06:34→17:00)
[2019-03-07] MEDS: DOCUSATE SODIUM 100 MG CAPSULE (FP) PO SCH ×3 (06:34→21:21)
[2019-03-07] MEDS: METHADONE 80 MG, METHADONE 10 MG PO SCH (06:35)
[2019-03-07] MEDS: INSULIN SLIDING SCALE (NOVOLOG) 1 VIAL SQ SCH ×2 (06:59→17:00)
[2019-03-07] MEDS: PRENATAL VITAMINS W/ FOLIC ACID TABLET (FP) PO SCH (10:21)
[2019-03-07] MEDS: PANTOPRAZOLE 40 MG TABLET (FP) PO SCH (10:21)
[2019-03-07] MEDS: BACITRACIN/POLYMYXIN B SULFATE 15 GM TUBE TP SCH ×2 (10:21→21:22)
[2019-03-07] MEDS: LISINOPRIL 10 MG TABLET (FP) PO SCH (11:00)
[2019-03-07] MEDS: hydrOXYzine PAMOATE 25 MG CAPSULE (FP) PO PRN (21:22)
[2019-03-07] MEDS: THIAMINE HCL 100 MG TABLET (FP) PO SCH (21:22)
[2019-03-07] MEDS: MAGNESIUM HYDROX 2400MG/30ML ORAL SUSPENSION 30 ML CUP PO PRN (21:24)
[2019-03-08] MEDS ORDERED: METHADONE HCL 10 MG TABLET ONE (05:17)
[2019-03-08] MEDS ORDERED: METHADONE HCL 40 MG DISPERSABLE TABLET ONE (05:18)
[2019-03-08] MEDS: metFORMIN HCL 500 MG TABLET (FP) PO SCH ×2 (06:18→16:32)
[2019-03-08] MEDS: METHADONE 80 MG, METHADONE 10 MG PO SCH (06:18)
[2019-03-08] MEDS: DOCUSATE SODIUM 100 MG CAPSULE (FP) PO SCH ×3 (06:18→21:26)
[2019-03-08] MEDS: INSULIN SLIDING SCALE (NOVOLOG) 1 VIAL SQ SCH ×2 (06:45→16:33)
[2019-03-08] MEDS: LISINOPRIL 10 MG TABLET (FP) PO SCH (10:09)
[2019-03-08] MEDS: PRENATAL VITAMINS W/ FOLIC ACID TABLET (FP) PO SCH (10:09)
[2019-03-08] MEDS: PANTOPRAZOLE 40 MG TABLET (FP) PO SCH (10:09)
[2019-03-08] MEDS: BACITRACIN/POLYMYXIN B SULFATE 15 GM TUBE TP SCH ×2 (10:09→21:26)
[2019-03-08] MEDS: hydrOXYzine PAMOATE 25 MG CAPSULE (FP) PO PRN (21:26)
[2019-03-08] MEDS: THIAMINE HCL 100 MG TABLET (FP) PO SCH (21:26)
[2019-03-08] MEDS: MAG HYDROX/AL HYDROX/SIMETH 30 ML UNIT-DOSE CUP PO PRN (21:27)
[2019-03-09] MEDS: METHADONE 80 MG, METHADONE 10 MG PO SCH (05:40)
[2019-03-09] MEDS ORDERED: METHADONE HCL 40 MG DISPERSABLE TABLET ONE (05:40)
[2019-03-09] MEDS ORDERED: METHADONE HCL 10 MG TABLET ONE (05:40)
[2019-03-09] MEDS: DOCUSATE SODIUM 100 MG CAPSULE (FP) PO SCH ×3 (06:13→21:29)
[2019-03-09] MEDS: metFORMIN HCL 500 MG TABLET (FP) PO SCH ×2 (07:13→16:44)
[2019-03-09] MEDS: INSULIN SLIDING SCALE (NOVOLOG) 1 VIAL SQ SCH ×2 (07:35→17:06)
[2019-03-09] MEDS: LISINOPRIL 10 MG TABLET (FP) PO SCH (09:39)
[2019-03-09] MEDS: PANTOPRAZOLE 40 MG TABLET (FP) PO SCH (09:39)
[2019-03-09] MEDS: PRENATAL VITAMINS W/ FOLIC ACID TABLET (FP) PO SCH (09:40)
[2019-03-09] MEDS: BACITRACIN/POLYMYXIN B SULFATE 15 GM TUBE TP SCH ×2 (09:40→21:29)
[2019-03-09] MEDS: MAG HYDROX/AL HYDROX/SIMETH 30 ML UNIT-DOSE CUP PO PRN (14:37)
[2019-03-09] MEDS: hydrOXYzine PAMOATE 25 MG CAPSULE (FP) PO PRN (21:29)
[2019-03-09] MEDS: THIAMINE HCL 100 MG TABLET (FP) PO SCH (21:29)
[2019-03-10] MEDS ORDERED: METHADONE HCL 40 MG DISPERSABLE TABLET ONE (04:33)
[2019-03-10] MEDS ORDERED: METHADONE HCL 10 MG TABLET ONE (04:33)
[2019-03-10] MEDS: METHADONE 80 MG, METHADONE 10 MG PO SCH (05:20)
[2019-03-10] MEDS: DOCUSATE SODIUM 100 MG CAPSULE (FP) PO SCH ×3 (05:20→21:19)
[2019-03-10] MEDS: INSULIN SLIDING SCALE (NOVOLOG) 1 VIAL SQ SCH ×2 (07:00→16:47)
[2019-03-10] MEDS: metFORMIN HCL 500 MG TABLET (FP) PO SCH ×2 (07:03→16:48)
[2019-03-10] MEDS: PANTOPRAZOLE 40 MG TABLET (FP) PO SCH (10:06)
[2019-03-10] MEDS: PRENATAL VITAMINS W/ FOLIC ACID TABLET (FP) PO SCH (10:06)
[2019-03-10] MEDS: BACITRACIN/POLYMYXIN B SULFATE 15 GM TUBE TP SCH ×2 (10:06→21:19)
[2019-03-10] MEDS: LISINOPRIL 10 MG TABLET (FP) PO SCH (10:06)
[2019-03-10] MEDS: hydrOXYzine PAMOATE 25 MG CAPSULE (FP) PO PRN (21:19)
[2019-03-10] MEDS: THIAMINE HCL 100 MG TABLET (FP) PO SCH (21:19)
[2019-03-10] MEDS: MAG HYDROX/AL HYDROX/SIMETH 30 ML UNIT-DOSE CUP PO PRN (21:46)
[2019-03-11] MEDS ORDERED: METHADONE HCL 10 MG TABLET ONE (05:53)
[2019-03-11] MEDS ORDERED: METHADONE HCL 40 MG DISPERSABLE TABLET ONE (05:54)
[2019-03-11] MEDS: metFORMIN HCL 500 MG TABLET (FP) PO SCH ×2 (07:34→16:42)
[2019-03-11] MEDS: DOCUSATE SODIUM 100 MG CAPSULE (FP) PO SCH ×3 (07:34→21:25)
[2019-03-11] MEDS: METHADONE 80 MG, METHADONE 10 MG PO SCH (07:34)
[2019-03-11] MEDS: INSULIN SLIDING SCALE (NOVOLOG) 1 VIAL SQ SCH ×2 (07:55→16:44)
[2019-03-11] MEDS: PANTOPRAZOLE 40 MG TABLET (FP) PO SCH (10:37)
[2019-03-11] MEDS: BACITRACIN/POLYMYXIN B SULFATE 15 GM TUBE TP SCH ×2 (10:37→21:25)
[2019-03-11] MEDS: LISINOPRIL 10 MG TABLET (FP) PO SCH (10:37)
[2019-03-11] MEDS: PRENATAL VITAMINS W/ FOLIC ACID TABLET (FP) PO SCH (10:37)
[2019-03-11] MEDS: MAG HYDROX/AL HYDROX/SIMETH 30 ML UNIT-DOSE CUP PO PRN (20:27)
[2019-03-11] MEDS: hydrOXYzine PAMOATE 25 MG CAPSULE (FP) PO PRN (21:25)
[2019-03-11] MEDS: THIAMINE HCL 100 MG TABLET (FP) PO SCH (21:26)
[2019-03-12] MEDS ORDERED: METHADONE HCL 10 MG TABLET ONE (03:49)
[2019-03-12] MEDS ORDERED: METHADONE HCL 40 MG DISPERSABLE TABLET ONE (03:49)
[2019-03-12] MEDS: DOCUSATE SODIUM 100 MG CAPSULE (FP) PO SCH ×3 (06:30→21:31)
[2019-03-12] MEDS ORDERED: METHADONE HCL 10 MG TABLET PO SCH (07:15)
[2019-03-12] MEDS: metFORMIN HCL 500 MG TABLET (FP) PO SCH ×2 (07:57→16:37)
[2019-03-12] MEDS: METHADONE 80 MG, METHADONE 10 MG PO SCH (07:57)
[2019-03-12] MEDS: INSULIN SLIDING SCALE (NOVOLOG) 1 VIAL SQ SCH ×2 (07:58→17:02)
[2019-03-12] MEDS: PRENATAL VITAMINS W/ FOLIC ACID TABLET (FP) PO SCH (10:24)
[2019-03-12] MEDS: PANTOPRAZOLE 40 MG TABLET (FP) PO SCH (10:24)
[2019-03-12] MEDS: LISINOPRIL 10 MG TABLET (FP) PO SCH (10:24)
[2019-03-12] MEDS: BACITRACIN/POLYMYXIN B SULFATE 15 GM TUBE TP SCH ×2 (10:24→21:31)
[2019-03-12] MEDS: THIAMINE HCL 100 MG TABLET (FP) PO SCH (21:31)
[2019-03-13] MEDS ORDERED: METHADONE HCL 10 MG TABLET ONE (06:04)
[2019-03-13] MEDS: METHADONE 80 MG, METHADONE 10 MG PO SCH (06:04)
[2019-03-13] MEDS ORDERED: METHADONE HCL 40 MG DISPERSABLE TABLET ONE (06:04)
[2019-03-13] MEDS: DOCUSATE SODIUM 100 MG CAPSULE (FP) PO SCH ×3 (06:58→21:31)
[2019-03-13] MEDS: metFORMIN HCL 500 MG TABLET (FP) PO SCH ×2 (07:58→16:36)
[2019-03-13] MEDS: INSULIN SLIDING SCALE (NOVOLOG) 1 VIAL SQ SCH ×2 (08:05→16:38)
[2019-03-13] MEDS: PRENATAL VITAMINS W/ FOLIC ACID TABLET (FP) PO SCH (10:26)
[2019-03-13] MEDS: BACITRACIN/POLYMYXIN B SULFATE 15 GM TUBE TP SCH ×2 (10:26→21:32)
[2019-03-13] MEDS: LISINOPRIL 10 MG TABLET (FP) PO SCH (10:26)
[2019-03-13] MEDS: PANTOPRAZOLE 40 MG TABLET (FP) PO SCH (10:26)
[2019-03-13] MEDS: hydrOXYzine PAMOATE 25 MG CAPSULE (FP) PO PRN (21:32)
[2019-03-13] MEDS: THIAMINE HCL 100 MG TABLET (FP) PO SCH (21:32)
[2019-03-14] MEDS ORDERED: METHADONE HCL 10 MG TABLET ONE (05:52)
[2019-03-14] MEDS ORDERED: METHADONE HCL 40 MG DISPERSABLE TABLET ONE (05:52)
[2019-03-14] MEDS: metFORMIN HCL 500 MG TABLET (FP) PO SCH ×2 (06:22→16:58)
[2019-03-14] MEDS: DOCUSATE SODIUM 100 MG CAPSULE (FP) PO SCH ×3 (06:22→21:38)
[2019-03-14] MEDS: METHADONE 80 MG, METHADONE 10 MG PO SCH (06:23)
[2019-03-14] MEDS: INSULIN SLIDING SCALE (NOVOLOG) 1 VIAL SQ SCH ×2 (06:24→17:04)
[2019-03-14] MEDS: PANTOPRAZOLE 40 MG TABLET (FP) PO SCH (10:42)
[2019-03-14] MEDS: PRENATAL VITAMINS W/ FOLIC ACID TABLET (FP) PO SCH (10:42)
[2019-03-14] MEDS: BACITRACIN/POLYMYXIN B SULFATE 15 GM TUBE TP SCH ×2 (10:42→21:38)
[2019-03-14] MEDS: LISINOPRIL 10 MG TABLET (FP) PO SCH (10:42)
[2019-03-14] MEDS: hydrOXYzine PAMOATE 25 MG CAPSULE (FP) PO PRN (21:38)
[2019-03-14] MEDS: THIAMINE HCL 100 MG TABLET (FP) PO SCH (21:38)
[2019-03-15] MEDS ORDERED: METHADONE HCL 10 MG TABLET ONE (03:51)
[2019-03-15] MEDS ORDERED: METHADONE HCL 40 MG DISPERSABLE TABLET ONE (03:51)
[2019-03-15] MEDS: METHADONE 80 MG, METHADONE 10 MG PO SCH (06:31)
[2019-03-15] MEDS: DOCUSATE SODIUM 100 MG CAPSULE (FP) PO SCH ×3 (06:32→21:31)
[2019-03-15] MEDS: metFORMIN HCL 500 MG TABLET (FP) PO SCH ×2 (07:27→17:06)
[2019-03-15] MEDS: INSULIN SLIDING SCALE (NOVOLOG) 1 VIAL SQ SCH ×2 (07:27→16:56)
[2019-03-15] MEDS: LISINOPRIL 10 MG TABLET (FP) PO SCH (10:05)
[2019-03-15] MEDS: PANTOPRAZOLE 40 MG TABLET (FP) PO SCH (10:05)
[2019-03-15] MEDS: BACITRACIN/POLYMYXIN B SULFATE 15 GM TUBE TP SCH ×2 (10:05→21:31)
[2019-03-15] MEDS: PRENATAL VITAMINS W/ FOLIC ACID TABLET (FP) PO SCH (10:06)
[2019-03-15] MEDS: hydrOXYzine PAMOATE 25 MG CAPSULE (FP) PO PRN (21:31)
[2019-03-15] MEDS: THIAMINE HCL 100 MG TABLET (FP) PO SCH (21:31)
[2019-03-16] MEDS ORDERED: METHADONE HCL 10 MG TABLET ONE (05:04)
[2019-03-16] MEDS ORDERED: METHADONE HCL 40 MG DISPERSABLE TABLET ONE (05:05)
[2019-03-16] MEDS: METHADONE 80 MG, METHADONE 10 MG PO SCH (06:24)
[2019-03-16] MEDS: DOCUSATE SODIUM 100 MG CAPSULE (FP) PO SCH ×3 (06:25→21:47)
[2019-03-16] MEDS: metFORMIN HCL 500 MG TABLET (FP) PO SCH ×2 (06:26→16:58)
[2019-03-16] MEDS: INSULIN SLIDING SCALE (NOVOLOG) 1 VIAL SQ SCH ×2 (06:42→16:59)
[2019-03-16] MEDS ORDERED: INSULIN (NOVOLOG) ASPART 100 UNITS/ML 10ML VIAL ONE (09:12)
[2019-03-16] MEDS: PRENATAL VITAMINS W/ FOLIC ACID TABLET (FP) PO SCH (10:28)
[2019-03-16] MEDS: PANTOPRAZOLE 40 MG TABLET (FP) PO SCH (10:28)
[2019-03-16] MEDS: LISINOPRIL 10 MG TABLET (FP) PO SCH (10:29)
[2019-03-16] MEDS: BACITRACIN/POLYMYXIN B SULFATE 15 GM TUBE TP SCH ×2 (10:29→21:45)
[2019-03-16] MEDS: THIAMINE HCL 100 MG TABLET (FP) PO SCH (21:45)
[2019-03-16] MEDS: hydrOXYzine PAMOATE 25 MG CAPSULE (FP) PO PRN (21:47)
[2019-03-17] MEDS ORDERED: METHADONE HCL 10 MG TABLET ONE (05:56)
[2019-03-17] MEDS ORDERED: METHADONE HCL 40 MG DISPERSABLE TABLET ONE (05:57)
[2019-03-17] MEDS: DOCUSATE SODIUM 100 MG CAPSULE (FP) PO SCH ×3 (06:14→21:36)
[2019-03-17] MEDS: metFORMIN HCL 500 MG TABLET (FP) PO SCH ×2 (06:14→16:57)
[2019-03-17] MEDS: METHADONE 80 MG, METHADONE 10 MG PO SCH (06:14)
[2019-03-17] MEDS: INSULIN SLIDING SCALE (NOVOLOG) 1 VIAL SQ SCH ×2 (08:00→17:45)
[2019-03-17] MEDS: BACITRACIN/POLYMYXIN B SULFATE 15 GM TUBE TP SCH ×2 (10:29→21:37)
[2019-03-17] MEDS: PANTOPRAZOLE 40 MG TABLET (FP) PO SCH (10:29)
[2019-03-17] MEDS: LISINOPRIL 10 MG TABLET (FP) PO SCH (10:29)
[2019-03-17] MEDS: PRENATAL VITAMINS W/ FOLIC ACID TABLET (FP) PO SCH (10:29)
[2019-03-17] MEDS: hydrOXYzine PAMOATE 25 MG CAPSULE (FP) PO PRN (21:36)
[2019-03-17] MEDS: THIAMINE HCL 100 MG TABLET (FP) PO SCH (21:37)
[2019-03-18] MEDS ORDERED: METHADONE HCL 10 MG TABLET ONE (05:43)
[2019-03-18] MEDS ORDERED: METHADONE HCL 40 MG DISPERSABLE TABLET ONE (05:43)
[2019-03-18] MEDS: DOCUSATE SODIUM 100 MG CAPSULE (FP) PO SCH ×3 (05:50→21:30)
[2019-03-18] MEDS: METHADONE 80 MG, METHADONE 10 MG PO SCH (05:50)
[2019-03-18] MEDS: INSULIN SLIDING SCALE (NOVOLOG) 1 VIAL SQ SCH ×2 (07:08→17:51)
[2019-03-18] MEDS: metFORMIN HCL 500 MG TABLET (FP) PO SCH ×2 (07:08→16:47)
[2019-03-18 07:19] VITALS: TEMP 97.9
[2019-03-18] MEDS: PRENATAL VITAMINS W/ FOLIC ACID TABLET (FP) PO SCH (10:01)
[2019-03-18] MEDS: BACITRACIN/POLYMYXIN B SULFATE 15 GM TUBE TP SCH ×2 (10:01→21:31)
[2019-03-18] MEDS: LISINOPRIL 10 MG TABLET (FP) PO SCH (10:01)
[2019-03-18] MEDS: PANTOPRAZOLE 40 MG TABLET (FP) PO SCH (10:01)
[2019-03-18] MEDS: hydrOXYzine PAMOATE 25 MG CAPSULE (FP) PO PRN (21:30)
[2019-03-18] MEDS: THIAMINE HCL 100 MG TABLET (FP) PO SCH (21:31)
[2019-03-19] MEDS ORDERED: METHADONE HCL 10 MG TABLET ONE (05:07)
[2019-03-19] MEDS ORDERED: METHADONE HCL 40 MG DISPERSABLE TABLET ONE (05:07)
[2019-03-19] MEDS ORDERED: METHADONE 80 MG, METHADONE 10 MG PO SCH (06:00)
[2019-03-19] MEDS ORDERED: METHADONE HCL 10 MG TABLET PO SCH (06:00)
[2019-03-19] MEDS: metFORMIN HCL 500 MG TABLET (FP) PO SCH (06:29)
[2019-03-19] MEDS: INSULIN SLIDING SCALE (NOVOLOG) 1 VIAL SQ SCH (06:29)
[2019-03-19] MEDS: DOCUSATE SODIUM 100 MG CAPSULE (FP) PO SCH (06:29)
[2019-03-19] MEDS: MAG HYDROX/AL HYDROX/SIMETH 30 ML UNIT-DOSE CUP PO PRN (07:28)
--- NOTE | 2019-03-19 09:54 | DS ---
[facility] Rehab Discharge Summary - [facility] Rehab Discharge Summary Admission Date: 02/20/19 Discharge Date: 03/19/19 - History Present History: Alcohol dependence, Cannabis dependence, Cocaine dependence, MMTP Additional Comments: Pt is a 48 y/o male with a hx of MARQUEZ and on [facility] admitted to rehab and discharged today after completing rehab . Pt met with his counselor and has been referred to aftercare treatment follow up. Pt is also referred back to his Methadone maintenance program to continue OTP treatment. Pt will seek primary care with [facility] treatment program after discharge. Pertinent Past History: HTN Type 2 DM GERD Obesity - Discharge Physical Exam Vital Signs: Vital Signs Temperature 97.9 F 03/19/19 07:21 Pulse Rate 67 03/19/19 07:21 Respiratory Rate 18 03/19/19 07:21 Blood Pressure 130/81 03/19/19 07:21 O2 Sat by Pulse Oximetry (%) 97 02/26/19 11:45 General:Alert o x 3. NAD, oob ambulating with steady gait cardiac:s1 s2,rrr lungs:cta,gage. abdomen:+bs,+++fatty, nt extremities/skin:no edema,full ROM,skin intact. Pertinent Admission Physical Exam Findings: Laboratory Tests 02/20/19 02/20/19 02/20/19 10:00 10:00 10:00 WBC 8.8 RBC 4.66 Hgb 13.9 Hct 41.8 MCV 89.7 MCH 29.9 MCHC 33.3 RDW 14.3 Plt Count 262 MPV 9.0 Sodium 139 Potassium 4.4 Chloride 100 Carbon Dioxide 30 Anion Gap 9 BUN 22.9 H Creatinine 1.1 Est GFR (CKD-EPI)AfAm 90.88 Est GFR (CKD-EPI)NonAf 78.41 POC Glucometer Random Glucose 102 Calcium 8.9 Total Bilirubin 0.2 AST 28 ALT 34 Alkaline Phosphatase 84 Total Protein 7.5 Albumin 4.0 Urine Color Urine Appearance Urine pH Ur Specific [place] Urine Protein Urine Glucose (UA) Urine Ketones Urine Blood Urine Nitrite Urine Bilirubin Urine Urobilinogen Ur Leukocyte Esterase RPR Titer Nonreactive HIV 1&2 Antibody Screen HIV P24 Antigen 02/20/19 02/20/19 02/21/19 10:14 16:39 06:33 WBC RBC Hgb Hct MCV MCH MCHC RDW Plt Count MPV Sodium Potassium Chloride Carbon Dioxide Anion Gap BUN Creatinine Est GFR (CKD-EPI)AfAm Est GFR (CKD-EPI)NonAf POC Glucometer 97 98 84 Random Glucose Calcium Total Bilirubin AST ALT Alkaline Phosphatase Total Protein Albumin Urine Color Urine Appearance Urine pH Ur Specific [place] Urine Protein Urine Glucose (UA) Urine Ketones Urine Blood Urine Nitrite Urine Bilirubin Urine Urobilinogen Ur Leukocyte Esterase RPR Titer HIV 1&2 Antibody Screen HIV P24 Antigen 02/21/19 02/21/19 02/22/19 12:23 16:39 06:09 WBC RBC Hgb Hct MCV MCH MCHC RDW Plt Count MPV Sodium Potassium Chloride Carbon Dioxide Anion Gap BUN Creatinine Est GFR (CKD-EPI)AfAm Est GFR (CKD-EPI)NonAf POC Glucometer 108 105 Random Glucose Calcium Total Bilirubin AST ALT Alkaline Phosphatase Total Protein Albumin Urine Color Yellow Urine Appearance Clear Urine pH 6.5 D Ur Specific [place] 1.019 Urine Protein Negative Urine Glucose (UA) Negative Urine Ketones Negative Urine Blood Negative Urine Nitrite Negative Urine Bilirubin Negative Urine Urobilinogen 0.2 Ur Leukocyte Esterase Negative RPR Titer HIV 1&2 Antibody Screen HIV P24 Antigen 02/22/19 02/23/19 02/23/19 16:34 06:37 16:40 WBC RBC Hgb Hct MCV MCH MCHC RDW Plt Count MPV Sodium Potassium Chloride Carbon Dioxide Anion Gap BUN Creatinine Est GFR (CKD-EPI)AfAm Est GFR (CKD-EPI)NonAf POC Glucometer 64 91 105 Random Glucose Calcium Total Bilirubin AST ALT Alkaline Phosphatase Total Protein Albumin Urine Color Urine Appearance Urine pH Ur Specific [place] Urine Protein Urine Glucose (UA) Urine Ketones Urine Blood Urine Nitrite Urine Bilirubin Urine Urobilinogen Ur Leukocyte Esterase RPR Titer HIV 1&2 Antibody Screen HIV P24 Antigen 02/24/19 02/24/19 02/25/19 06:45 16:50 06:16 WBC RBC Hgb Hct MCV MCH MCHC RDW Plt Count MPV Sodium Potassium Chloride Carbon Dioxide Anion Gap BUN Creatinine Est GFR (CKD-EPI)AfAm Est GFR (CKD-EPI)NonAf POC Glucometer 90 129 88 Random Glucose Calcium Total Bilirubin AST ALT Alkaline Phosphatase Total Protein Albumin Urine Color Urine Appearance Urine pH Ur Specific [place] Urine Protein Urine Glucose (UA) Urine Ketones Urine Blood Urine Nitrite Urine Bilirubin Urine Urobilinogen Ur Leukocyte Esterase RPR Titer HIV 1&2 Antibody Screen HIV P24 Antigen 02/25/19 02/25/19 02/26/19 08:40 16:40 06:03 WBC RBC Hgb Hct MCV MCH MCHC RDW Plt Count MPV Sodium Potassium Chloride Carbon Dioxide Anion Gap BUN Creatinine Est GFR (CKD-EPI)AfAm Est GFR (CKD-EPI)NonAf POC Glucometer 128 88 Random Glucose Calcium Total Bilirubin AST ALT Alkaline Phosphatase Total Protein Albumin Urine Color Urine Appearance Urine pH Ur Specific [place] Urine Protein Urine Glucose (UA) Urine Ketones Urine Blood Urine Nitrite Urine Bilirubin Urine Urobilinogen Ur Leukocyte Esterase RPR Titer HIV 1&2 Antibody Screen Negative HIV P24 Antigen Negative 02/26/19 02/27/19 02/27/19 16:42 06:01 17:03 WBC RBC Hgb Hct MCV MCH MCHC RDW Plt Count MPV Sodium Potassium Chloride Carbon Dioxide Anion Gap BUN Creatinine Est GFR (CKD-EPI)AfAm Est GFR (CKD-EPI)NonAf POC Glucometer 94 71 121 Random Glucose Calcium Total Bilirubin AST ALT Alkaline Phosphatase Total Protein Albumin Urine Color Urine Appearance Urine pH Ur Specific [place] Urine Protein Urine Glucose (UA) Urine Ketones Urine Blood Urine Nitrite Urine Bilirubin Urine Urobilinogen Ur Leukocyte Esterase RPR Titer HIV 1&2 Antibody Screen HIV P24 Antigen 02/28/19 02/28/19 03/01/19 06:30 16:44 06:11 WBC RBC Hgb Hct MCV MCH MCHC RDW Plt Count MPV Sodium Potassium Chloride Carbon Dioxide Anion Gap BUN Creatinine Est GFR (CKD-EPI)AfAm Est GFR (CKD-EPI)NonAf POC Glucometer 90 108 87 Random Glucose Calcium Total Bilirubin AST ALT Alkaline Phosphatase Total Protein Albumin Urine Color Urine Appearance Urine pH Ur Specific [place] Urine Protein Urine Glucose (UA) Urine Ketones Urine Blood Urine Nitrite Urine Bilirubin Urine Urobilinogen Ur Leukocyte Esterase RPR Titer HIV 1&2 Antibody Screen HIV P24 Antigen 03/01/19 03/02/19 03/02/19 16:34 06:13 17:01 WBC RBC Hgb Hct MCV MCH MCHC RDW Plt Count MPV Sodium Potassium Chloride Carbon Dioxide Anion Gap BUN Creatinine Est GFR (CKD-EPI)AfAm Est GFR (CKD-EPI)NonAf POC Glucometer 98 138 144 Random Glucose Calcium Total Bilirubin AST ALT Alkaline Phosphatase Total Protein Albumin Urine Color Urine Appearance Urine pH Ur Specific [place] Urine Protein Urine Glucose (UA) Urine Ketones Urine Blood Urine Nitrite Urine Bilirubin Urine Urobilinogen Ur Leukocyte Esterase RPR Titer HIV 1&2 Antibody Screen HIV P24 Antigen 03/03/19 03/03/19 03/04/19 06:16 17:03 06:08 WBC RBC Hgb Hct MCV MCH MCHC RDW Plt Count MPV Sodium Potassium Chloride Carbon Dioxide Anion Gap BUN Creatinine Est GFR (CKD-EPI)AfAm Est GFR (CKD-EPI)NonAf POC Glucometer 94 107 98 Random Glucose Calcium Total Bilirubin AST ALT Alkaline Phosphatase Total Protein Albumin Urine Color Urine Appearance Urine pH Ur Specific [place] Urine Protein Urine Glucose (UA) Urine Ketones Urine Blood Urine Nitrite Urine Bilirubin Urine Urobilinogen Ur Leukocyte Esterase RPR Titer HIV 1&2 Antibody Screen HIV P24 Antigen 03/04/19 03/05/19 03/05/19 16:53 06:32 17:00 WBC RBC Hgb Hct MCV MCH MCHC RDW Plt Count MPV Sodium Potassium Chloride Carbon Dioxide Anion Gap BUN Creatinine Est GFR (CKD-EPI)AfAm Est GFR (CKD-EPI)NonAf POC Glucometer 130 95 123 Random Glucose Calcium Total Bilirubin AST ALT Alkaline Phosphatase Total Protein Albumin Urine Color Urine Appearance Urine pH Ur Specific [place] Urine Protein Urine Glucose (UA) Urine Ketones Urine Blood Urine Nitrite Urine Bilirubin Urine Urobilinogen Ur Leukocyte Esterase RPR Titer HIV 1&2 Antibody Screen HIV P24 Antigen 03/06/19 03/06/19 03/07/19 06:18 16:44 06:33 WBC RBC Hgb Hct MCV MCH MCHC RDW Plt Count MPV Sodium Potassium Chloride Carbon Dioxide Anion Gap BUN Creatinine Est GFR (CKD-EPI)AfAm Est GFR (CKD-EPI)NonAf POC Glucometer 84 104 119 Random Glucose Calcium Total Bilirubin AST ALT Alkaline Phosphatase Total Protein Albumin Urine Color Urine Appearance Urine pH Ur Specific [place] Urine Protein Urine Glucose (UA) Urine Ketones Urine Blood Urine Nitrite Urine Bilirubin Urine Urobilinogen Ur Leukocyte Esterase RPR Titer HIV 1&2 Antibody Screen HIV P24 Antigen 03/07/19 03/08/19 03/08/19 16:59 06:16 16:31 WBC RBC Hgb Hct MCV MCH MCHC RDW Plt Count MPV Sodium Potassium Chloride Carbon Dioxide Anion Gap BUN Creatinine Est GFR (CKD-EPI)AfAm Est GFR (CKD-EPI)NonAf POC Glucometer 130 87 120 Random Glucose Calcium Total Bilirubin AST ALT Alkaline Phosphatase Total Protein Albumin Urine Color Urine Appearance Urine pH Ur Specific [place] Urine Protein Urine Glucose (UA) Urine Ketones Urine Blood Urine Nitrite Urine Bilirubin Urine Urobilinogen Ur Leukocyte Esterase RPR Titer HIV 1&2 Antibody Screen HIV P24 Antigen 03/09/19 03/09/19 03/10/19 05:38 16:44 05:22 WBC RBC Hgb Hct MCV MCH MCHC RDW Plt Count MPV Sodium Potassium Chloride Carbon Dioxide Anion Gap BUN Creatinine Est GFR (CKD-EPI)AfAm Est GFR (CKD-EPI)NonAf POC Glucometer 88 129 111 Random Glucose Calcium Total Bilirubin AST ALT Alkaline Phosphatase Total Protein Albumin Urine Color Urine Appearance Urine pH Ur Specific [place] Urine Protein Urine Glucose (UA) Urine Ketones Urine Blood Urine Nitrite Urine Bilirubin Urine Urobilinogen Ur Leukocyte Esterase RPR Titer HIV 1&2 Antibody Screen HIV P24 Antigen 03/10/19 03/11/19 03/11/19 16:46 07:33 16:43 WBC RBC Hgb Hct MCV MCH MCHC RDW Plt Count MPV Sodium Potassium Chloride Carbon Dioxide Anion Gap BUN Creatinine Est GFR (CKD-EPI)AfAm Est GFR (CKD-EPI)NonAf POC Glucometer 143 83 129 Random Glucose Calcium Total Bilirubin AST ALT Alkaline Phosphatase Total Protein Albumin Urine Color Urine Appearance Urine pH Ur Specific [place] Urine Protein Urine Glucose (UA) Urine Ketones Urine Blood Urine Nitrite Urine Bilirubin Urine Urobilinogen Ur Leukocyte Esterase RPR Titer HIV 1&2 Antibody Screen HIV P24 Antigen 03/12/19 03/12/19 03/13/19 06:52 16:36 06:06 WBC RBC Hgb Hct MCV MCH MCHC RDW Plt Count MPV Sodium Potassium Chloride Carbon Dioxide Anion Gap BUN Creatinine Est GFR (CKD-EPI)AfAm Est GFR (CKD-EPI)NonAf POC Glucometer 88 128 106 Random Glucose Calcium Total Bilirubin AST ALT Alkaline Phosphatase Total Protein Albumin Urine Color Urine Appearance Urine pH Ur Specific [place] Urine Protein Urine Glucose (UA) Urine Ketones Urine Blood Urine Nitrite Urine Bilirubin Urine Urobilinogen Ur Leukocyte Esterase RPR Titer HIV 1&2 Antibody Screen HIV P24 Antigen 03/13/19 03/14/19 03/14/19 16:36 06:21 16:57 WBC RBC Hgb Hct MCV MCH MCHC RDW Plt Count MPV Sodium Potassium Chloride Carbon Dioxide Anion Gap BUN Creatinine Est GFR (CKD-EPI)AfAm Est GFR (CKD-EPI)NonAf POC Glucometer 133 85 105 Random Glucose Calcium Total Bilirubin AST ALT Alkaline Phosphatase Total Protein Albumin Urine Color Urine Appearance Urine pH Ur Specific [place] Urine Protein Urine Glucose (UA) Urine Ketones Urine Blood Urine Nitrite Urine Bilirubin Urine Urobilinogen Ur Leukocyte Esterase RPR Titer HIV 1&2 Antibody Screen HIV P24 Antigen 03/15/19 03/15/19 03/16/19 06:32 16:29 06:26 WBC RBC Hgb Hct MCV MCH MCHC RDW Plt Count MPV Sodium Potassium Chloride Carbon Dioxide Anion Gap BUN Creatinine Est GFR (CKD-EPI)AfAm Est GFR (CKD-EPI)NonAf POC Glucometer 81 132 91 Random Glucose Calcium Total Bilirubin AST ALT Alkaline Phosphatase Total Protein Albumin Urine Color Urine Appearance Urine pH Ur Specific [place] Urine Protein Urine Glucose (UA) Urine Ketones Urine Blood Urine Nitrite Urine Bilirubin Urine Urobilinogen Ur Leukocyte Esterase RPR Titer HIV 1&2 Antibody Screen HIV P24 Antigen 03/16/19 03/17/19 03/17/19 16:59 06:13 16:56 WBC RBC Hgb Hct MCV MCH MCHC RDW Plt Count MPV Sodium Potassium Chloride Carbon Dioxide Anion Gap BUN Creatinine Est GFR (CKD-EPI)AfAm Est GFR (CKD-EPI)NonAf POC Glucometer 127 125 145 Random Glucose Calcium Total Bilirubin AST ALT Alkaline Phosphatase Total Protein Albumin Urine Color Urine Appearance Urine pH Ur Specific [place] Urine Protein Urine Glucose (UA) Urine Ketones Urine Blood Urine Nitrite Urine Bilirubin Urine Urobilinogen Ur Leukocyte Esterase RPR Titer HIV 1&2 Antibody Screen HIV P24 Antigen 03/18/19 03/18/19 03/19/19 05:51 16:46 06:27 WBC RBC Hgb Hct MCV MCH MCHC RDW Plt Count MPV Sodium Potassium Chloride Carbon Dioxide Anion Gap BUN Creatinine Est GFR (CKD-EPI)AfAm Est GFR (CKD-EPI)NonAf POC Glucometer 97 127 123 Random Glucose Calcium Total Bilirubin AST ALT Alkaline Phosphatase Total Protein Albumin Urine Color Urine Appearance Urine pH Ur Specific [place] Urine Protein Urine Glucose (UA) Urine Ketones Urine Blood Urine Nitrite Urine Bilirubin Urine Urobilinogen Ur Leukocyte Esterase RPR Titer HIV 1&2 Antibody Screen HIV P24 Antigen PMHx Unchanged from detox admission. - Treatment Discharge Condition: Discharge condition good Hospital Course: Rehabilitated safely and responded well CD aftercare referral accepted - Medication Discharge Medications: Ambulatory Orders Lisinopril [Prinivil] 10 mg PO DAILY 02/20/19 Metformin HCl [Glucophage] 500 mg PO BID 02/20/19 Omeprazole 20 mg PO DAILY 02/20/19 - Medication-Assisted Treatment (MAT) Medication-Assisted Treatment (MAT): No - Discharge Instructions Diet, activity, other medical instructions: Diet:RAFA/NCS Activity: oob ad jose Other medical instructions:Follow up with MMTP @ [facility] upon discharge follow up with CD aftercare/Medical management referral at [facility] as recommended and scheduled. - Diagnosis (1) Type 2 diabetes mellitus Status: Chronic Qualifiers: Diabetes mellitus jail insulin use: without jail use (2) Cocaine dependence Status: Acute Qualifiers: Substance use status: uncomplicated Qualified Code(s): F14.20 - Cocaine dependence, uncomplicated (3) Alcohol use disorder Status: Chronic (4) Cannabis dependence Status: Chronic (5) Nicotine dependence Status: Chronic Qualifiers: Nicotine product type: cigarettes Substance use status: uncomplicated Qualified Code(s): F17.210 - Nicotine dependence, cigarettes, uncomplicated (6) Hypertension Status: Chronic Qualifiers: Hypertension type: essential hypertension Qualified Code(s): I10 - Essential (primary) hypertension (7) GERD (gastroesophageal reflux disease) Status: Chronic Qualifiers: Esophagitis presence: esophagitis presence not specified Qualified Code(s) : K21.9 - Gastro-esophageal reflux disease without esophagitis (8) Obesity, morbid, BMI 40.0-49.9 Status: Chronic - Follow-up Referral Minutes to complete discharge: 25 - AMA Did Patient Leave Against Medical Advice: No Additional Comments: Pt reports he has no current PCP due to being in [facility] and recently out of [facility] before coming here but was given his medical prescriptions which he still has and has no need for Rx today. Will follow up with primary care at [facility] after discharge.
[2019-03-19] MEDS: LISINOPRIL 10 MG TABLET (FP) PO SCH (10:05)
[2019-03-19] MEDS: PRENATAL VITAMINS W/ FOLIC ACID TABLET (FP) PO SCH (10:05)
[2019-03-19] MEDS: BACITRACIN/POLYMYXIN B SULFATE 15 GM TUBE TP SCH (10:05)
[2019-03-19] MEDS: PANTOPRAZOLE 40 MG TABLET (FP) PO SCH (10:05)
[2019-03-19 11:22] VITALS: BP 134/72; PULSE 73
== END 2019-03-19 10:07 | disposition home or self-care (01) | DRG 772 ==
LOC: YASAS 08:26 → Y5N 11:07
PROVIDERS: ADMIT Neuromusculoskeletal Medicine & OMM; ATTEND Neuromusculoskeletal Medicine & OMM
PROC: HZ42ZZZ Group Counseling for Substance Abuse Treatment, Cognitive-Behavioral (ICD-10-PCS; principal; 2019-02-20)
DX: F10.20 Alcohol dependence, uncomplicated (principal); F11.20 Opioid dependence, uncomplicated; F17.210 Nicotine dependence, cigarettes, uncomplicated; I10 Essential (primary) hypertension; E11.9 Type 2 diabetes mellitus without complications; K21.9 Gastro-esophageal reflux disease without esophagitis; K59.00 Constipation, unspecified; R07.9 Chest pain, unspecified; E66.9 Obesity, unspecified; Z68.42 Body mass index [BMI] 45.0-49.9, adult; Z87.438 Personal history of other diseases of male genital organs; Z79.84 Long term (current) use of oral hypoglycemic drugs
CPT/HCPCS: 36415; 80053; 81003; 82962; 85027; 86593; 87389; 93005; 93010

== ENCOUNTER 2022-02-28 14:09 | Inpatient (IN) | payer OTHER ==
[2022-02-28 15:15] VITALS: BMI 40.7
[2022-02-28] MEDS ORDERED: IBUPROFEN 400 MG TABLET (FP) PO PRN (15:53)
[2022-02-28] MEDS ORDERED: IBUPROFEN 600 MG TABLET (FP) PO PRN (15:53)
[2022-02-28] MEDS ORDERED: hydrOXYzine PAMOATE 25 MG CAPSULE (FP) PO PRN (15:53)
[2022-02-28] MEDS ORDERED: DICYCLOMINE HCL 10 MG CAPSULE PO PRN (15:53)
[2022-02-28] MEDS ORDERED: METHOCARBAMOL 500 MG TABLET PO PRN (15:53)
[2022-02-28] MEDS ORDERED: LOPERAMIDE HCL 2 MG CAPSULE PO PRN (15:53)
[2022-02-28] MEDS ORDERED: BENZOCAINE/MENTHOL (CHLORASEPTIC ) LOZENGE MM PRN (15:53)
[2022-02-28] MEDS ORDERED: NALOXONE HCL (KLOXXADO) 8 MG SPRAY NS PRN (15:53)
[2022-02-28] MEDS ORDERED: MAGNESIUM CITRATE 300 ML BOTTLE PO PRN (15:53)
[2022-02-28] MEDS ORDERED: ACETAMINOPHEN 325 MG TABLET (FP) PO PRN ×2 (15:53)
[2022-02-28] MEDS ORDERED: NICOTINE 10 MG CARTRIDGE (INHALER) IH PRN (15:53)
[2022-02-28] MEDS ORDERED: MAG HYDROX/AL HYDROX/SIMETH 30 ML UNIT-DOSE CUP PO PRN (15:53)
[2022-02-28] MEDS ORDERED: MAGNESIUM HYDROX 2400MG/30ML ORAL SUSPENSION 30 ML CUP PO PRN (15:53)
[2022-02-28] MEDS ORDERED: ONDANSETRON *ODT* 4 MG TABLET SL PRN (15:53)
[2022-02-28] MEDS ORDERED: BISMUTH SUBSALICYLATE 524 MG/30 ML PO PRN (15:53)
[2022-02-28] MEDS ORDERED: chlordiazePOXIDE HCL 25 MG CAPSULE PO PRN (15:56)
[2022-02-28] MEDS ORDERED: cloNIDine HCL 0.1 MG TABLET PO PRN (15:56)
[2022-02-28] MEDS ORDERED: methaDONE HCL 10 MG TABLET (FOR DETOX USE ONLY) PO ONE ×2 (15:56→18:15)
[2022-02-28] MEDS ORDERED: chlordiazePOXIDE HCL 25 MG CAPSULE PO SCH (17:00)
[2022-02-28] MEDS: chlordiazePOXIDE HCL 25 MG CAPSULE PO SCH (18:32)
[2022-02-28] MEDS ORDERED: MELATONIN 5 MG TABLETS PO SCH (22:00)
[2022-02-28] MEDS ORDERED: THIAMINE HCL 100 MG TABLET (FP) PO SCH (22:00)
[2022-03-01] MEDS: chlordiazePOXIDE HCL 25 MG CAPSULE PO SCH ×4 (01:04→17:55)
[2022-03-01 07:37] VITALS: RESP 18
[2022-03-01] MEDS ORDERED: ASPIRIN 81 MG CHEWABLE TABLETS PO SCH (10:00)
[2022-03-01] MEDS ORDERED: PRENATAL VITAMINS W/ FOLIC ACID TABLET (FP) PO SCH (10:00)
[2022-03-01 17:46] VITALS: BP 127/84; PULSE 60; TEMP 97.1
[2022-03-02] MEDS ORDERED: chlordiazePOXIDE HCL 25 MG CAPSULE PO SCH (05:00)
[2022-03-02] MEDS ORDERED: methaDONE HCL 10 MG TABLET (FOR DETOX USE ONLY) PO ONE (10:00)
[2022-03-03] MEDS ORDERED: chlordiazePOXIDE HCL 10 MG CAPSULE PO PRN
[2022-03-03] MEDS ORDERED: chlordiazePOXIDE HCL 10 MG CAPSULE PO SCH (05:00)
[2022-03-04] MEDS ORDERED: chlordiazePOXIDE HCL 10 MG CAPSULE PO SCH (05:00)
[2022-03-04] MEDS ORDERED: methaDONE HCL 10 MG TABLET (FOR DETOX USE ONLY) PO ONE (10:00)
[2022-03-05] MEDS ORDERED: chlordiazePOXIDE HCL 10 MG CAPSULE PO ONE (05:00)
== END 2022-03-01 17:59 | disposition left against medical advice (07) | DRG 770 ==
LOC: YASAS 14:09 → Y6N 17:06
PROVIDERS: ADMIT Allergy & Immunology; ATTEND Surgery
PROC: HZ2ZZZZ Detoxification Services for Substance Abuse Treatment (ICD-10-PCS; principal; 2022-02-28)
DX: F11.23 Opioid dependence with withdrawal (principal); F10.230 Alcohol dependence with withdrawal, uncomplicated; F14.20 Cocaine dependence, uncomplicated; F12.10 Cannabis abuse, uncomplicated; F17.210 Nicotine dependence, cigarettes, uncomplicated; I10 Essential (primary) hypertension; E78.5 Hyperlipidemia, unspecified; K21.9 Gastro-esophageal reflux disease without esophagitis; E11.9 Type 2 diabetes mellitus without complications; Z79.84 Long term (current) use of oral hypoglycemic drugs; E66.01 Morbid (severe) obesity due to excess calories; Z68.41 Body mass index [BMI] 40.0-44.9, adult
CPT/HCPCS: 82962; 93005; 93010; C9803-CS; U0003; U0005